=== PATIENT | male | born 1955 ===

== ENCOUNTER 2018-01-06 18:11 | Inpatient (IN) | payer OTHER ==
[2018-01-06 20:12] LABS: BASO % 0.3 % (0.0-2.0); HEMOGLOBIN 16.2 g/dL (12.0-18.0); LYMPH # 1.1 K/uL (1.0-4.3); LYMPH % 10.4 % (20.0-40.0); MEAN CELL VOLUME 88.2 fl (80.0-94.0); MEAN CORPUSCULAR HEMOGLOBIN 29.7 pg (27.0-31.0); MEAN CORPUSCULAR HGB CONC 33.6 g/dL (33.0-37.0); MEAN PLATELET VOLUME 8.4 fl (7.2-11.7); MONO # 0.8 K/uL (0.0-0.8); MONO % 7.2 % (0.0-10.0); NEUT # 8.7 K/uL (1.8-7.0); NEUT % 82.1 % (50.0-75.0); NRBC % 0.3 % (0.0-0.0); RBC 5.48 Mil/uL (4.40-5.90); RED CELL DISTRIBUTION WIDTH 15.2 % (11.5-14.5); WHITE BLOOD COUNT 10.6 K/uL (4.8-10.8)
[2018-01-06 20:23] LABS: ALB/GLOB RATIO 1.2 (1.0-2.1); ALBUMIN 4.5 g/dL (3.5-5.0); ALT/SGPT 29 U/L (21-72); AST/SGOT 31 U/L (17-59); BLOOD UREA NITROGEN 24 mg/dl (9-20); CALCIUM 9.8 mg/dL (8.4-10.2); GFR AFRICAN-AMERICAN > 60; GFR NON-AFRICAN AMERICAN > 60; LIPASE 35 U/L (23-300)
--- NOTE | 2018-01-06 20:26 | ED PDOC ---
HPI: Abdomen Time Seen by Provider: 01/06/18 19:14 Chief Complaint (Nursing): Abdominal Pain Chief Complaint (Provider): Abdominal Pain History Per: Patient History/Exam Limitations: no limitations Onset/Duration Of Symptoms: Days Current Symptoms Are (Timing): Still Present Location Of Pain/Discomfort: Diffuse Associated Symptoms: Vomiting, Loss Of Appetite. denies: Diarrhea Additional Complaint(s): 62 year old male presents to the ED complaining of diffuse and constant abdominal pain, worsening since onset Wednesday. Patient states abdominal pain is associated with non-bloody, non-bilious intermittent vomiting and decreased appetite. Patient states she has not been able to eat anything for the last three days. Patient was seen at an Urgent Care where labs and ultrasounds were performed and sent to the ER for further evaluation, thus prompting today's visit. PMD: None Past Medical History Reviewed: Historical Data, Nursing Documentation, Vital Signs Vital Signs: Last Vital Signs Temp 98.7 F 01/06/18 22:49 Pulse 68 01/06/18 22:49 Resp 18 01/06/18 22:49 BP 140/71 01/06/18 22:49 Pulse Ox 97 01/06/18 23:06 - Medical History PMH: No Chronic Diseases - Surgical History Surgical History: No Surg Hx - Family History Family History: States: No Known Family Hx - Social History Current smoker - smoking cessation education provided: No Alcohol: > 2 Drinks/Day Drugs: Denies - Allergies Allergies/Adverse Reactions: Allergies Allergy/AdvReac Type Severity Reaction Status Date / Time No Known Allergies Allergy Verified 01/06/18 18:34 Review of Systems ROS Statement: Except As Marked, All Systems Reviewed And Found Negative (as per HPI) Gastrointestinal: Positive for: Vomiting (intermittent non-bloody, non-bilious ) , Abdominal Pain (diffuse), Other (decreased appetite). Negative for: Diarrhea Physical Exam - Reviewed Nursing Documentation Reviewed: Yes Vital Signs Reviewed: Yes - Physical Exam Appears: Positive for: Uncomfortable, In Acute Distress (painful ) Head Exam: Positive for: ATRAUMATIC, NORMOCEPHALIC Skin: Positive for: Warm, Dry Eye Exam: Positive for: EOMI, PERRL ENT: Positive for: Normal ENT Inspection, Other (dry mucous membranes) Neck: Positive for: Normal, Painless ROM Cardiovascular/Chest: Positive for: Regular Rate, Rhythm, Chest Non Tender. Negative for: Murmur Respiratory: Positive for: Normal Breath Sounds. Negative for: Wheezing, Respiratory Distress Gastrointestinal/Abdominal: Positive for: Soft, Tenderness (diffuse tenderness to palpation; no mass, guarding or rebound.), Hernia (reducible, soft, right anguinal hernia ) Back: Positive for: Normal Inspection. Negative for: Decreased ROM Extremity: Positive for: Normal ROM. Negative for: Deformity Lymphatic: Negative for: Adenopathy Neurologic/Psych: Positive for: Alert. Negative for: Motor/Sensory Deficits - Laboratory Results Result Diagrams: 01/06/18 19:58 01/06/18 19:58 - ECG ECG: Positive for: Interpreted By Me ECG Rhythm: Positive for: Normal QRS, Normal ST Segment, Sinus Rhythm O2 Sat by Pulse Oximetry: 97 (RA) Pulse Ox Interpretation: Normal Medical Decision Making Medical Decision Making: Time: 1958 Impression: Abdominal Pain Differentials include but not limited to obstruction, mesenteric ischemia, colitis, diverticulitis, appendicitis Plan: -- Type and Screen -- CT Abd & Pelvis IV contrast -- CMP -- Lact Acid -- LDH -- Lipase -- Magnesium -- Phosphorus -- ED Urine Dipstick -- CBC with differentials -- PTT -- Prothrombin Time -- Morphine 2 mg IVP -- Zofran ODT 4 mg IVP -- IV Insertion No emergently significant lab abnormalities EXAM: CT Abdomen and Pelvis With Intravenous Contrast CLINICAL HISTORY: 62 years, male; Pain; Abdominal pain; Localized; Lower; Additional info: Abd pain TECHNIQUE: Axial computed tomography images of the abdomen and pelvis with intravenous contrast. All CT scans at this facility use one or more dose reduction techniques, viz.: automated exposure control; ma/kV adjustment per patient size (including targeted exams where dose is matched to indication; i.e. head); or iterative reconstruction technique. CONTRAST: 90 mL of [id number] administered intravenously. COMPARISON: No relevant prior studies available. FINDINGS: Lung bases: Unremarkable. No mass. No consolidation. ABDOMEN: Liver: Hepatic steatosis. No focal liver mass. Gallbladder and bile ducts: Unremarkable. No calcified stones. No ductal dilation. Pancreas: Unremarkable. No mass. No ductal dilation. Spleen: Unremarkable. No splenomegaly. Adrenals: Unremarkable. No mass. Kidneys and ureters: Unremarkable. No solid mass. No hydronephrosis. Stomach and bowel: Multiple dilated loops of small bowel measuring up to 4.4 cm with transition point to collapsed loops of ileum identified in the right lower quadrant. Colon is decompressed. Diverticulosis. No mucosal thickening. PELVIS: Appendix: Normal appendix. Bladder: Unremarkable. No mass. Reproductive: Enlargement of the prostate gland. Bilateral hydroceles. ABDOMEN and PELVIS: Intraperitoneal space: Small amount of free fluid in the abdomen and pelvis. No free air. Bones/joints: Multilevel degenerative changes. No acute fracture. No dislocation. Soft tissues: Small right and tiny left inguinal hernias containing fat and a small amount of free fluid tracking from the pelvis. Vasculature: Minimal atherosclerosis of the aorta and iliac arteries. No abdominal aortic aneurysm. Lymph nodes: Unremarkable. No enlarged lymph nodes. IMPRESSION: 1. Mechanical small bowel obstruction with transition point in the right lower quadrant. 2. Small amount of free fluid in the abdomen and pelvis. 3. Additional chronic/incidental findings as described above. Thank you for allowing us to participate in the care of your patient. Dictated and Authenticated by: Arina Hurley MD 01/06/2018 10:23 PM Eastern Time ([place] & [place]) 11p On reeval pt feels better, but now has hiccups. RITU Braxton resident services coordinator. RITU Hauser Med Service DW pt findings and plan of care. IVF, IV Zosyn, Bowel rest, admission Scribe Attestation: Documented by Dave Mccain, acting as a scribe for Dr. Kasey Garcia. Provider Scribe Attestation: All medical record entries made by the Scribe were at my direction and personally dictated by me. I have reviewed the chart and agree that the record accurately reflects my personal performance of the history, physical exam, medical decision making, and the department course for this patient. I have also personally directed, reviewed and agree with the discharge instructions and disposition. Disposition - Clinical Impression Clinical Impression: Small bowel obstruction Counseled Patient/Family Regarding: Studies Performed, Diagnosis - Disposition Disposition Time: 23:00 Condition: FAIR - Pt Status Changed To: Hospital Disposition Of: Inpatient - Admit Certification Admit to Inpatient:: After my assessment, the patient will require hospitalization for at least two midnights. This is because of the severity of symptoms shown, intensity of services needed, and/or the medical risk in this patient being treated as an outpatient. - POA Present On Arrival: None
[2018-01-06 20:51] LABS: INR 0.9 (0.9-1.2); PARTIAL THROMBOPLASTIN TIME 30.4 Seconds (25.6-37.1)
[2018-01-06] MEDS ORDERED: Iohexol 300 100 ML IJ ONE (21:03)
[2018-01-06] MEDS ORDERED: Sodium Chloride 0.9% 50 ML IV ONE (21:03)
[2018-01-06] MEDS ORDERED: Sodium Chloride 0.9% 1,000 ML IV STA (23:11)
[2018-01-06] MEDS ORDERED: Dextrose 5%/0.9% NS 1,000 ML IV SCH (23:15)
[2018-01-06] MEDS ORDERED: Piperacillin/Tazobact 3.375 GM in Sodium Chloride 0.9% 100 ML IV STA (23:58)
[2018-01-07] MEDS ORDERED: Piperacillin/Tazobact 3.375 gm Inj IVPB ONE (00:17)
--- NOTE | 2018-01-07 03:11 | CP.PCM.CON ---
<Vu Braxton - Last Filed: 01/08/18 12:04> History of Present Illness - History of Present Illness History of Present Illness: General Surgery Consult Note: Dr. Umana 62M with no significant past medical history presents to [facility] ED with complaints of abdominal pain. Patient states abdominal pain began on Wednesday morning. Reports abdominal discomfort kept progressing and states he was having multiple bouts of non- bloody emesis. Patient denies passing flatus or having a BM since symptoms started on Wednesday. At time of examination patient reported feeling nauseous and bloated. A nasogastric tube was inserted, 300ccs of bilious fluid were collected on initial insertion. Patient denies ever having a colonoscopy. Denies headache/dizziness, chest pain, shortness of breath, diarrhea, dysuria. PMHx: none PSurgHx: none Allergies: none Soc Hx: Drinks 6 cans of 12 oz beers daily, denies smoking, denies illicit drug use Review of Systems - Review of Systems Review of Systems: 12 pt ROS unremarkable, except as stated in HPI Past Patient History - Infectious Disease Hx of Infectious Diseases: None - Past Medical History & Family History Past Medical History?: No - Past Social History Smoking Status: Never Smoked - CARDIAC Hx Cardiac Disorders: No - PULMONARY Hx Respiratory Disorders: No - NEUROLOGICAL Hx Neurological Disorder: No - HEENT Hx HEENT Problems: No - RENAL Hx Chronic Kidney Disease: No - ENDOCRINE/METABOLIC Hx Endocrine Disorders: No - HEMATOLOGICAL/ONCOLOGICAL Hx Blood Disorders: No Hx AIDS: No Hx Human Immunodeficiency Virus (HIV): No - INTEGUMENTARY Hx Dermatological Problems: No - MUSCULOSKELETAL/RHEUMATOLOGICAL Hx Musculoskeletal Disorders: No Hx Falls: No - GASTROINTESTINAL Hx Gastrointestinal Disorders: No - GENITOURINARY/GYNECOLOGICAL Hx Genitourinary Disorders: No - PSYCHIATRIC Hx Psychophysiologic Disorder: No Hx Substance Use: No - SURGICAL HISTORY Hx Surgeries: No - ANESTHESIA Hx Anesthesia: No Meds Allergies/Adverse Reactions: Allergies Allergy/AdvReac Type Severity Reaction Status Date / Time No Known Allergies Allergy Verified 01/06/18 18:34 - Medications Medications: Current Medications Dextrose/Sodium Chloride (Dextrose 5%/0.9% Ns 1000 Ml) 1,000 mls @ 100 mls/hr IV .Q10H [facility] Last Admin: 01/07/18 00:25 Dose: 100 mls/hr Physical Exam - Constitutional Appears: Non-toxic, No Acute Distress - Head Exam Head Exam: NORMOCEPHALIC - Eye Exam Eye Exam: Normal appearance - ENT Exam ENT Exam: Mucous Membranes Moist - Respiratory Exam Respiratory Exam: NORMAL BREATHING PATTERN - Cardiovascular Exam Cardiovascular Exam: +S1, +S2 - GI/Abdominal Exam GI & Abdominal Exam: Distended, Hernia, Soft. absent: Firm, Guarding, Rebound, Rigid, Tenderness Additional comments: small right inguinal hernia, fat containing, reducible - Neurological Exam Neurological exam: Alert, Oriented x3 - Psychiatric Exam Psychiatric exam: Normal Mood - Skin Skin Exam: Dry, Normal Color, Warm Results - Vital Signs Recent Vital Signs: Last Vital Signs Temp 98.6 F 01/07/18 01:07 Pulse 73 01/07/18 01:07 Resp 18 01/07/18 01:07 BP 157/84 H 01/07/18 01:07 Pulse Ox 97 01/07/18 01:07 - Labs Result Diagrams: 01/08/18 06:30 01/08/18 06:30 Labs: Laboratory Results - last 24 hr 01/06/18 01/06/18 01/06/18 19:58 19:58 19:58 WBC 10.6 RBC 5.48 Hgb 16.2 Hct 48.3 MCV 88.2 MCH 29.7 MCHC 33.6 RDW 15.2 H Plt Count 282 MPV 8.4 Neut % (Auto) 82.1 H Lymph % (Auto) 10.4 L [place] % (Auto) 7.2 Eos % (Auto) 0.0 Baso % (Auto) 0.3 Neut # (Auto) 8.7 H Lymph # (Auto) 1.1 [place] # (Auto) 0.8 Eos # (Auto) 0.0 Baso # (Auto) 0.0 PT INR APTT Sodium 140 Potassium 4.2 Chloride 96 L Carbon Dioxide 33 H Anion Gap 15 BUN 24 H Creatinine 0.8 Est GFR ( Amer) > 60 Est GFR (Non-Af Amer) > 60 Random Glucose 116 H Lactic Acid 0.9 Calcium 9.8 Phosphorus 3.2 Magnesium 2.1 Total Bilirubin 2.8 H AST 31 ALT 29 Alkaline Phosphatase 54 Lactate Dehydrogenase 427 Total Protein 8.0 Albumin 4.5 Globulin 3.6 Albumin/Globulin Ratio 1.2 Lipase 35 Blood Type Antibody Screen BBK History Checked 01/06/18 01/06/18 19:58 19:58 WBC RBC Hgb Hct MCV MCH MCHC RDW Plt Count MPV Neut % (Auto) Lymph % (Auto) [place] % (Auto) Eos % (Auto) Baso % (Auto) Neut # (Auto) Lymph # (Auto) [place] # (Auto) Eos # (Auto) Baso # (Auto) PT 10.0 INR 0.9 APTT 30.4 Sodium Potassium Chloride Carbon Dioxide Anion Gap BUN Creatinine Est GFR ( Amer) Est GFR (Non-Af Amer) Random Glucose Lactic Acid Calcium Phosphorus Magnesium Total Bilirubin AST ALT Alkaline Phosphatase Lactate Dehydrogenase Total Protein Albumin Globulin Albumin/Globulin Ratio Lipase Blood Type O POSITIVE Antibody Screen Negative BBK History Checked No verified bt - Imaging and Cardiology CT scan - abdomen Status: Image reviewed by me, Report reviewed by me Assessment & Plan - Assessment and Plan (Free Text) Assessment: 62M with SBO likely 2/2 right inguinal hernia Plan: NPO IVF Anti-emetics prn Analgesic prn NGT to low continuous suction Recommend GI consult, warrants screening colonoscopy Further recs per Dr. Dong Fisher PGY2 <Kev Umana - Last Filed: 01/08/18 15:04> Meds - Medications Medications: Current Medications Benzocaine/Menthol (Cepacol Sore Throat) 1 margarita PO Q2 PRN PRN Reason: Sore Throat Dextrose/Sodium Chloride (Dextrose 5%/0.45% Ns 1000 Ml) 1,000 mls @ 125 mls/hr IV .Q8H [facility] Last Admin: 01/08/18 14:02 Dose: 125 mls/hr Ondansetron HCl (Zofran Inj) 4 mg IVP Q6 PRN PRN Reason: nausea Pantoprazole Sodium (Protonix Inj) 40 mg IVP DAILY [facility] Last Admin: 01/08/18 09:02 Dose: 40 mg Results - Vital Signs Recent Vital Signs: Last Vital Signs Temp 98.3 F 01/08/18 00:16 Pulse 67 01/08/18 00:16 Resp 18 01/08/18 00:16 BP 150/79 01/08/18 00:16 Pulse Ox 97 01/08/18 00:16 - Labs Result Diagrams: 01/08/18 06:30 01/08/18 06:30 Labs: Laboratory Results - last 24 hr 01/08/18 01/08/18 06:30 06:30 WBC 7.2 RBC 4.90 Hgb 14.6 Hct 43.8 MCV 89.4 MCH 29.8 MCHC 33.4 RDW 15.2 H Plt Count 244 Sodium 138 Potassium 4.6 Chloride 99 Carbon Dioxide 32 H Anion Gap 12 BUN 15 Creatinine 0.8 Est GFR ( Amer) > 60 Est GFR (Non-Af Amer) > 60 Random Glucose 132 H Calcium 8.7 Assessment & Plan - Assessment and Plan (Free Text) Plan: I personally saw and examined this patient at bedside independent of the resident staff. I agree with the above assessment with the following changes. There is a 62-year-old male with no other past surgical history presents with his first episode of small bowel obstruction. On talking with the patient he said he stated the symptoms started 3 days prior to presentation to the hospital is vague diffuse abdominal pain on Wednesday. He left early from work that day and took off of work on Wednesday due to his abdominal discomfort finally on morning the pain became unbearable. He also states that this was the first time he noticed a bulge in his right groin he denies any history of prior groin hernias. He finally brought himself to the urgent care facility and was sent to the emergency room for further evaluation. An abdomen abdominal CT was performed. I personally reviewed the CT abdomen pelvis images. I do agree with a he may have a transition point small bowel in his right lower abdomen however I to me it appears that there may be a loop of small bowel that is actually herniating into his right groin. In my exam he has a small right inguinal hernia that is soft reducible nonpainful. His abdomen is soft nondistended and nontender. This is after 24 hours of NG tube decompression he does endorse passing flatus as of this morning. I discussed with the patient that I recommend he undergo exloratory laparoscopy with plans for performing a laparoscopic robotic assisted (ROBERT) repair of his right inguinal hernia with mesh depending on intra-abdominal findings. I also discussed the option of waiting and if he is able to resolve this episode of small bowel obstruction that this could be repaired electively at a later time. 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 He would like to proceed with surgery during this admission. We discussed the details of the operation and risks and benefits including, but not limited to, bleeding, infection, injury to vascular structures, bowel and/or bladder as well as hernia recurrence, chronic groin pain and seroma formation. He understands these risks and wishes to proceed. He will need medical clearance for surgery and we have asked the medicine team to evaluate. For now, NGT clamp trial can be performed, if 6 hours residual output is <300 AND continues to pass flatus, NGT may be removed but I would still keep NPO for today. Can give clears on wednesday and make NPO at Midnight wednesday night for tentative surgery Wednesday. - Date & Time Date: 01/08/18 Time: 10:00
[2018-01-07] MEDS ORDERED: Benzocaine/Menthol (Cepacol) Lozenge PO PRN (03:21)
[2018-01-07] MEDS ORDERED: Potassium Ch 20mEq in D5-1/2NS 1,000 ML IV SCH (03:30)
[2018-01-07 06:52] LABS: BASO % 0.1 % (0.0-2.0); EOS % 0.1 % (0.0-4.0); HEMOGLOBIN 15.2 g/dL (12.0-18.0); LYMPH # 1.4 K/uL (1.0-4.3); LYMPH % 12.7 % (20.0-40.0); MEAN CELL VOLUME 88.5 fl (80.0-94.0); MEAN CORPUSCULAR HEMOGLOBIN 29.7 pg (27.0-31.0); MEAN CORPUSCULAR HGB CONC 33.6 g/dL (33.0-37.0); MEAN PLATELET VOLUME 8.5 fl (7.2-11.7); MONO # 0.8 K/uL (0.0-0.8); MONO % 7.6 % (0.0-10.0); NEUT # 8.5 K/uL (1.8-7.0); NEUT % 79.5 % (50.0-75.0); NRBC % 0.1 % (0.0-0.0); RBC 5.12 Mil/uL (4.40-5.90); RED CELL DISTRIBUTION WIDTH 15.4 % (11.5-14.5); WHITE BLOOD COUNT 10.7 K/uL (4.8-10.8)
[2018-01-07 07:02] LABS: BLOOD UREA NITROGEN 23 mg/dl (9-20); CALCIUM 9.1 mg/dL (8.4-10.2); GFR AFRICAN-AMERICAN > 60; GFR NON-AFRICAN AMERICAN > 60
--- NOTE | 2018-01-07 07:12 | RAD ---
HISTORY: NGT insertion COMPARISON: Chest radiographs 01/06/2018. FINDINGS: A nasogastric tube is identified placed in the interval terminating at the left upper quadrant abdomen. LUNGS: No active pulmonary disease. PLEURA: No significant pleural effusion identified, no pneumothorax apparent. CARDIOVASCULAR: Normal. OSSEOUS STRUCTURES: No significant abnormalities. VISUALIZED UPPER ABDOMEN: Distended small bowel loops identified in the upper abdomen diffusely. OTHER FINDINGS: None. IMPRESSION: No acute cardiopulmonary disease appreciated. Interval nasogastric tube deployment as discussed above.
--- NOTE | 2018-01-07 09:21 | CT ---
PROCEDURE: CT Abdomen and Pelvis with contrast HISTORY: ABD PAIN COMPARISON: None. TECHNIQUE: Following the intravenous administration of iodinated contrast material, a CT examination of the abdomen and pelvis performed from the domes of the diaphragms to the symphysis pubis with reformatted datasets provided not only axial but also sagittal and coronal planes. Oral contrast was not administered as per referring physician request. Contrast dose: Omnipaque 300, 90 cc Radiation dose: Total exam DLP = 205.22 mGy-cm. This CT exam was performed using one or more of the following dose reduction techniques: Automated exposure control, adjustment of the mA and/or kV according to patient size, and/or use of iterative reconstruction technique. FINDINGS: LOWER THORAX: Unremarkable. LIVER: Unremarkable. No gross lesion or ductal dilatation. GALLBLADDER AND BILE DUCTS: Unremarkable. PANCREAS: Unremarkable. No gross lesion or ductal dilatation. SPLEEN: Unremarkable. ADRENALS: Unremarkable. No mass. KIDNEYS AND URETERS: Unremarkable. No hydronephrosis. No solid mass. VASCULATURE: Unremarkable. No aortic aneurysm. BOWEL: Stomach is moderately distended with retained fluid and air and is unremarkable appearing otherwise. A mechanical distal small bowel obstruction is identified with loops of small bowel distended with air and fluid up to approximately 4.5 cm greatest transverse dimension. Pattern persists up to the distal small bowel at the right lower quadrant were transition from dilated to collapsed caliber is appreciated at images 119-124 series 3 and image 31 series 601. Trace perihepatic and pelvic ascites is identified with limited mesenteric reactive changes identified at the right lower quadrant in the pelvis. No free intraperitoneal gas. No pneumatosis of bowel is identified throughout. APPENDIX: Normal appendix. PERITONEUM: Unremarkable. No free fluid. No free air. LYMPH NODES: Unremarkable. No enlarged lymph nodes. BLADDER: Unremarkable. REPRODUCTIVE: Enlarged prostate gland. BONES: No acute fracture. OTHER FINDINGS: None. IMPRESSION: 1. Findings consistent with mechanical distal small bowel obstruction with transition point identified in the right lower quadrant abdomen. Limited abdominal and pelvic ascites as discussed above. Small bowel is distended up to 4.5 cm greatest transverse dimension. No free intraperitoneal gas identified. 2. Remainder the abdominal portion of the exam is unremarkable. 3. Enlarged prostate gland. Concordant preliminary report from [facility], 01/06/2018.
[2018-01-07] MEDS: Dextrose 5%/0.45% NS 1,000 ML IV SCH ×3 (10:50→21:54)
--- NOTE | 2018-01-07 11:09 | CARD ---
APPROVED REPORT EKG Measurement Heart [id number] ID [id number] <Conclusion> Normal sinus rhythm Normal ECG
--- NOTE | 2018-01-07 11:27 | RAD ---
HISTORY: bowel obstruction COMPARISON: Chest radiograph 01/06/2018. FINDINGS: LUNGS: No active pulmonary disease. PLEURA: No significant pleural effusion identified, no pneumothorax apparent. CARDIOVASCULAR: Normal. OSSEOUS STRUCTURES: No significant abnormalities. VISUALIZED UPPER ABDOMEN: Persistent dilated loops of small bowel are identified in the visualized abdomen with the stomach mildly distended as well. OTHER FINDINGS: None. IMPRESSION: No acute cardiopulmonary disease in the interval. Incidental distention of small bowel loops and stomach are again seen in the visualized abdomen.
--- NOTE | 2018-01-07 14:16 | CP.PCM.HP ---
History of Present Illness - History of Present Illness History of Present Illness: CC: Abdominal pain. 62 y/o M, with no chronic PMHx, [facility] be evaluated for abdominal pain that began on 01/05/18, with no relief, increased on DOA. Generalized abdominal pain, described as sharp, cramping, moderated intensity 7:10, associated to nausea/vomiting, non bilious, non bloody. Previously, Pt was seen at an Urgent Care center where Labs and abdomen U-S were performed and was sent to ER [facility] for further Tx. Worsening symptoms: Loss of Appetite. CT Abd/Pel performed while at ER showing SBO. Aggravated factor: Unable to eat for the last 3 days [employer]. Pt denied: Fever, chills, diarrhea, SOB, CP, Palpitation, headache, dizziness, urinary symptoms, sick contact, recent travel out of [facility]. CXR: No Cardiopulmonary disease. EKG: Normal sinus rhythm. Present on Admission - Present on Admission Any Indicators Present on Admission: No Review of Systems - Constitutional Constitutional: Other (negative) - EENT Eyes: Requires Corrective Lenses Ears: Other (negative) Nose/Mouth/Throat: Other (negative) - Cardiovascular Cardiovascular: Other (negative) - Respiratory Respiratory: Other (negative) - Gastrointestinal Gastrointestinal: Abdominal Pain, Nausea, Vomiting - Genitourinary Genitourinary: Other (negative) - Musculoskeletal Musculoskeletal: Other (negative) - Integumentary Integumentary: Other (negative) - Neurological Neurological: Other (negative) - Psychiatric Psychiatric: Other (negative) - Endocrine Endocrine: Other (negative) - Hematologic/Lymphatic Hematologic: Other (negative) Past Patient History - Infectious Disease Hx of Infectious Diseases: None - Past Medical History & Family History Past Medical History?: No Pertinent Family History: Unknown - Past Social History Smoking Status: Never Smoked Alcohol: > 2 Drinks/Day Drugs: Denies - CARDIAC Hx Cardiac Disorders: No - PULMONARY Hx Respiratory Disorders: No - NEUROLOGICAL Hx Neurological Disorder: No - HEENT Hx HEENT Problems: No - RENAL Hx Chronic Kidney Disease: No - ENDOCRINE/METABOLIC Hx Endocrine Disorders: No - HEMATOLOGICAL/ONCOLOGICAL Hx Blood Disorders: No Hx AIDS: No Hx Human Immunodeficiency Virus (HIV): No - INTEGUMENTARY Hx Dermatological Problems: No - MUSCULOSKELETAL/RHEUMATOLOGICAL Hx Musculoskeletal Disorders: No Hx Falls: No - GASTROINTESTINAL Hx Gastrointestinal Disorders: No - GENITOURINARY/GYNECOLOGICAL Hx Genitourinary Disorders: No - PSYCHIATRIC Hx Psychophysiologic Disorder: No Hx Substance Use: No - SURGICAL HISTORY Hx Surgeries: No - ANESTHESIA Hx Anesthesia: No Meds Allergies/Adverse Reactions: Allergies Allergy/AdvReac Type Severity Reaction Status Date / Time No Known Allergies Allergy Verified 01/06/18 18:34 Physical Exam - Constitutional Appears: No Acute Distress - Head Exam Head Exam: NORMAL INSPECTION - Eye Exam Eye Exam: PERRL - ENT Exam Additional comments: NG tube - Neck Exam Neck exam: Positive for: Normal Inspection - Respiratory Exam Respiratory Exam: NORMAL BREATHING PATTERN - Cardiovascular Exam Cardiovascular Exam: REGULAR RHYTHM - GI/Abdominal Exam GI & Abdominal Exam: Distended (mild), Normal Bowel Sounds, Soft. absent: Guarding, Rebound Additional comments: R inguinal hernia reducible. - Extremities Exam Extremities exam: Positive for: normal inspection - Back Exam Back exam: NORMAL INSPECTION - Neurological Exam Neurological exam: Alert, Oriented x3 Additional comments: No motor/sensory deficit. - Psychiatric Exam Psychiatric exam: Normal Mood - Skin Skin Exam: Warm Results - Vital Signs Recent Vital Signs: Last Vital Signs Temp 98.2 F 01/07/18 08:08 Pulse 54 L 01/07/18 08:08 Resp 98 H 01/07/18 08:08 BP 137/76 01/07/18 08:08 Pulse Ox 20 L 01/07/18 08:08 reviewed Keerthi - Labs Result Diagrams: 01/08/18 06:30 01/08/18 06:30 Labs: Laboratory Results - last 24 hr 01/06/18 01/06/18 01/06/18 19:58 19:58 19:58 WBC 10.6 RBC 5.48 Hgb 16.2 Hct 48.3 MCV 88.2 MCH 29.7 MCHC 33.6 RDW 15.2 H Plt Count 282 MPV 8.4 Neut % (Auto) 82.1 H Lymph % (Auto) 10.4 L [place] % (Auto) 7.2 Eos % (Auto) 0.0 Baso % (Auto) 0.3 Neut # (Auto) 8.7 H Lymph # (Auto) 1.1 [place] # (Auto) 0.8 Eos # (Auto) 0.0 Baso # (Auto) 0.0 PT INR APTT Sodium 140 Potassium 4.2 Chloride 96 L Carbon Dioxide 33 H Anion Gap 15 BUN 24 H Creatinine 0.8 Est GFR ( Amer) > 60 Est GFR (Non-Af Amer) > 60 Random Glucose 116 H Lactic Acid 0.9 Calcium 9.8 Phosphorus 3.2 Magnesium 2.1 Total Bilirubin 2.8 H AST 31 ALT 29 Alkaline Phosphatase 54 Lactate Dehydrogenase 427 Total Protein 8.0 Albumin 4.5 Globulin 3.6 Albumin/Globulin Ratio 1.2 Lipase 35 Blood Type Antibody Screen BBK History Checked 01/06/18 01/06/18 01/07/18 19:58 19:58 05:35 WBC 10.7 RBC 5.12 Hgb 15.2 Hct 45.3 MCV 88.5 MCH 29.7 MCHC 33.6 RDW 15.4 H Plt Count 268 MPV 8.5 Neut % (Auto) 79.5 H Lymph % (Auto) 12.7 L [place] % (Auto) 7.6 Eos % (Auto) 0.1 Baso % (Auto) 0.1 Neut # (Auto) 8.5 H Lymph # (Auto) 1.4 [place] # (Auto) 0.8 Eos # (Auto) 0.0 Baso # (Auto) 0.0 PT 10.0 INR 0.9 APTT 30.4 Sodium Potassium Chloride Carbon Dioxide Anion Gap BUN Creatinine Est GFR ( Amer) Est GFR (Non-Af Amer) Random Glucose Lactic Acid Calcium Phosphorus Magnesium Total Bilirubin AST ALT Alkaline Phosphatase Lactate Dehydrogenase Total Protein Albumin Globulin Albumin/Globulin Ratio Lipase Blood Type O POSITIVE Antibody Screen Negative BBK History Checked No verified bt 01/07/18 05:35 WBC RBC Hgb Hct MCV MCH MCHC RDW Plt Count MPV Neut % (Auto) Lymph % (Auto) [place] % (Auto) Eos % (Auto) Baso % (Auto) Neut # (Auto) Lymph # (Auto) [place] # (Auto) Eos # (Auto) Baso # (Auto) PT INR APTT Sodium 140 Potassium 5.2 H Chloride 101 Carbon Dioxide 31 H Anion Gap 13 BUN 23 H Creatinine 0.9 Est GFR ( Amer) > 60 Est GFR (Non-Af Amer) > 60 Random Glucose 154 H Lactic Acid Calcium 9.1 Phosphorus Magnesium Total Bilirubin AST ALT Alkaline Phosphatase Lactate Dehydrogenase Total Protein Albumin Globulin Albumin/Globulin Ratio Lipase Blood Type Antibody Screen BBK History Checked reviewed J.P. - EKG Data EKG comments: reviewed J.PJosey - Imaging and Cardiology Chest x-ray Status: Report reviewed by me (Keerthi) Assessment & Plan (1) Small bowel obstruction Status: Acute (2) Inguinal hernia Status: Chronic - Assessment and Plan (Free Text) Plan: Continue NPO, Dextrose/Sodium Chl, Protonic, Surgery consult appreciated, GI consult. - Date & Time Date: 01/07/18 Time: 13:40
[2018-01-08] MEDS: Dextrose 5%/0.45% NS 1,000 ML IV SCH ×5 (02:30→22:02)
[2018-01-08 07:42] LABS: HEMOGLOBIN 14.6 g/dL (12.0-18.0); MEAN CELL VOLUME 89.4 fl (80.0-94.0); MEAN CORPUSCULAR HEMOGLOBIN 29.8 pg (27.0-31.0); MEAN CORPUSCULAR HGB CONC 33.4 g/dL (33.0-37.0); RBC 4.9 Mil/uL (4.40-5.90); RED CELL DISTRIBUTION WIDTH 15.2 % (11.5-14.5); WHITE BLOOD COUNT 7.2 K/uL (4.8-10.8)
[2018-01-08 07:56] LABS: BLOOD UREA NITROGEN 15 mg/dl (9-20); CALCIUM 8.7 mg/dL (8.4-10.2); GFR AFRICAN-AMERICAN > 60; GFR NON-AFRICAN AMERICAN > 60
--- NOTE | 2018-01-08 09:41 | CP.PCM.PN ---
Subjective - Date & Time of Evaluation Date of Evaluation: 01/08/18 Time of Evaluation: 07:00 - Subjective Subjective: Surgery Progress note- Dr. Umana Patient seen and examined at bedside this AM. no acute events overnight. Nursing notes reviewed. ABD less distended. ABD pain and discomfort significantly improved from yesterday. + OOB and ambulate. Denies current BM and flatus. NGT 300cc/12hrs of bilious fluid Objective - Vital Signs/Intake and Output Vital Signs (last 24 hours): Temp Pulse Resp BP Pulse Ox 98.3 F 67 18 150/79 97 01/08/18 00:16 01/08/18 00:16 01/08/18 00:16 01/08/18 00:16 01/08/18 00:16 Intake and Output: 01/08/18 01/08/18 06:59 18:59 Output Total 400 Balance -400 - Medications Medications: Current Medications Benzocaine/Menthol (Cepacol Sore Throat) 1 margarita PO Q2 PRN PRN Reason: Sore Throat Dextrose/Sodium Chloride (Dextrose 5%/0.45% Ns 1000 Ml) 1,000 mls @ 125 mls/hr IV .[facility]H [facility] Last Admin: 01/08/18 05:34 Dose: 125 mls/hr Ondansetron HCl (Zofran Inj) 4 mg IVP Q6 PRN PRN Reason: nausea Pantoprazole Sodium (Protonix Inj) 40 mg IVP DAILY [facility] Last Admin: 01/08/18 09:02 Dose: 40 mg - Labs Labs: 01/08/18 06:30 01/08/18 06:30 PT 10.0 Seconds (9.8-13.1) 01/06/18 19:58 INR 0.9 (0.9-1.2) 01/06/18 19:58 APTT 30.4 Seconds (25.6-37.1) 01/06/18 19:58 - Constitutional Appears: Non-toxic, No Acute Distress - Head Exam Head Exam: ATRAUMATIC - Eye Exam Eye Exam: EOMI. absent: Scleral icterus - Respiratory Exam Respiratory Exam: NORMAL BREATHING PATTERN. absent: Accessory Muscle Use, Respiratory Distress - Cardiovascular Exam Cardiovascular Exam: +S1, +S2. absent: Bradycardia, Tachycardia - GI/Abdominal Exam GI & Abdominal Exam: Soft. absent: Distended, Firm, Guarding, Rigid, Tenderness , Rebound - Extremities Exam Extremities Exam: Normal Inspection. absent: Calf Tenderness - Neurological Exam Neurological Exam: Alert, Awake, Oriented x3 - Psychiatric Exam Psychiatric exam: Normal Affect - Skin Skin Exam: Intact, Warm Assessment and Plan - Assessment and Plan (Free Text) Assessment: 62M w/ SBO, improving Plan: - dulcolax suppository - c/w IVF D51/2NS - NPO - pain control PRN - Lab holiday - Monitor bowel function return - discussed w/ Dr. Umana Surgical attending PGY1
--- NOTE | 2018-01-08 15:30 | CP.PCM.PN ---
Subjective - Date & Time of Evaluation Date of Evaluation: 01/08/18 Time of Evaluation: 14:00 - Subjective Subjective: F/U SBO no Abdominal pain , no N/V , NG tube Objective - Vital Signs/Intake and Output Vital Signs (last 24 hours): Temp Pulse Resp BP Pulse Ox 98.3 F 67 18 150/79 97 01/08/18 00:16 01/08/18 00:16 01/08/18 00:16 01/08/18 00:16 01/08/18 00:16 Intake and Output: 01/08/18 01/08/18 06:59 18:59 Output Total 400 Balance -400 - Medications Medications: Current Medications Benzocaine/Menthol (Cepacol Sore Throat) 1 margarita PO Q2 PRN PRN Reason: Sore Throat Dextrose/Sodium Chloride (Dextrose 5%/0.45% Ns 1000 Ml) 1,000 mls @ 125 mls/hr IV .Q8H [facility] Last Admin: 01/08/18 14:02 Dose: 125 mls/hr Ondansetron HCl (Zofran Inj) 4 mg IVP Q6 PRN PRN Reason: nausea Pantoprazole Sodium (Protonix Inj) 40 mg IVP DAILY [facility] Last Admin: 01/08/18 09:02 Dose: 40 mg - Labs Labs: 01/08/18 06:30 01/08/18 06:30 PT 10.0 Seconds (9.8-13.1) 01/06/18 19:58 INR 0.9 (0.9-1.2) 01/06/18 19:58 APTT 30.4 Seconds (25.6-37.1) 01/06/18 19:58 - Constitutional Appears: No Acute Distress - Head Exam Head Exam: NORMAL INSPECTION - Eye Exam Eye Exam: PERRL - ENT Exam ENT Exam: Normal Exam - Neck Exam Neck Exam: Normal Inspection - Respiratory Exam Respiratory Exam: NORMAL BREATHING PATTERN - Cardiovascular Exam Cardiovascular Exam: REGULAR RHYTHM - GI/Abdominal Exam GI & Abdominal Exam: Soft, Hernia, Normal Bowel Sounds Additional comments: R inguinal hernia reducible - Extremities Exam Extremities Exam: Normal Inspection - Back Exam Back Exam: NORMAL INSPECTION - Neurological Exam Neurological Exam: Alert, Oriented x3. absent: Motor Sensory Deficit - Psychiatric Exam Psychiatric exam: Normal Mood - Skin Skin Exam: Warm Assessment and Plan (1) Small bowel obstruction Status: Acute (2) Inguinal hernia Status: Chronic - Assessment and Plan (Free Text) Plan: continue current treatment , OR Wednesday
[2018-01-09] MEDS: Dextrose 5%/0.45% NS 1,000 ML IV SCH ×2 (02:30→05:50)
--- NOTE | 2018-01-09 08:57 | CP.PCM.PN ---
Subjective - Date & Time of Evaluation Date of Evaluation: 01/09/18 Time of Evaluation: 07:30 - Subjective Subjective: Surgery- Dr. Umana Patient seen and examined at bedside this AM. No acute events overnight. +oob and ambulating. Denies Flatus or BM. NGT clamp trail 1 50cc. currently NGT clamped. Denies nausea, vomiting, diarrhea, chest pain, shortness of breath. Objective - Vital Signs/Intake and Output Vital Signs (last 24 hours): Temp Pulse Resp BP Pulse Ox 98.6 F 64 20 150/80 97 01/09/18 08:38 01/09/18 08:38 01/09/18 08:38 01/09/18 08:38 01/09/18 08:38 Intake and Output: 01/09/18 01/09/18 06:59 18:59 Output Total 150 Balance -150 - Medications Medications: Current Medications Benzocaine/Menthol (Cepacol Sore Throat) 1 margarita PO Q2 PRN PRN Reason: Sore Throat Dextrose/Sodium Chloride (Dextrose 5%/0.45% Ns 1000 Ml) 1,000 mls @ 125 mls/hr IV .Q8H [facility] Last Admin: 01/09/18 05:50 Dose: 125 mls/hr Ondansetron HCl (Zofran Inj) 4 mg IVP Q6 PRN PRN Reason: nausea Pantoprazole Sodium (Protonix Inj) 40 mg IVP DAILY [facility] Last Admin: 01/08/18 09:02 Dose: 40 mg - Labs Labs: 01/08/18 06:30 01/08/18 06:30 PT 10.0 Seconds (9.8-13.1) 01/06/18 19:58 INR 0.9 (0.9-1.2) 01/06/18 19:58 APTT 30.4 Seconds (25.6-37.1) 01/06/18 19:58 - Constitutional Appears: Non-toxic, No Acute Distress - Head Exam Head Exam: ATRAUMATIC - Eye Exam Eye Exam: EOMI. absent: Scleral icterus - Neck Exam Neck Exam: absent: Lymphadenopathy - Respiratory Exam Respiratory Exam: NORMAL BREATHING PATTERN. absent: Accessory Muscle Use, Wheezes, Respiratory Distress - Cardiovascular Exam Cardiovascular Exam: +S1, +S2. absent: Bradycardia, Tachycardia - GI/Abdominal Exam GI & Abdominal Exam: Soft. absent: Distended, Firm, Guarding, Rigid, Tenderness Additional comments: +tympanic Reducible R. inguinal hernia - Extremities Exam Extremities Exam: Normal Inspection. absent: Calf Tenderness - Neurological Exam Neurological Exam: Alert, Awake, Oriented x3 - Psychiatric Exam Psychiatric exam: Normal Affect - Skin Skin Exam: Intact, Warm Assessment and Plan - Assessment and Plan (Free Text) Assessment: 62M w/ Small Bowel Obstruction Plan: - Initial NGT clamp trial 50cc - f/u repeat clamp output - plan for Will Exploratory diagnostic robotic laparoscopy and robotic laparoscopic inguinal hernia repair - medical optimization - pending medical clearance from primary team - monitor for bowel function return - d/w Dr. Umana surgical attending PGY1
--- NOTE | 2018-01-09 13:16 | CP.PCM.PN ---
Subjective - Date & Time of Evaluation Date of Evaluation: 01/09/18 Time of Evaluation: 13:30 - Subjective Subjective: no AD , no abdominal Pain , no N/V , off NG tube Objective - Vital Signs/Intake and Output Vital Signs (last 24 hours): Temp Pulse Resp BP Pulse Ox 98.6 F 64 20 150/80 97 01/09/18 08:38 01/09/18 08:38 01/09/18 08:38 01/09/18 08:38 01/09/18 08:38 Intake and Output: 01/09/18 01/09/18 06:59 18:59 Output Total 150 Balance -150 - Medications Medications: Current Medications Benzocaine/Menthol (Cepacol Sore Throat) 1 margarita PO Q2 PRN PRN Reason: Sore Throat Dextrose/Sodium Chloride (Dextrose 5%/0.45% Ns 1000 Ml) 1,000 mls @ 125 mls/hr IV .Q8H [facility] Last Admin: 01/09/18 05:50 Dose: 125 mls/hr Ondansetron HCl (Zofran Inj) 4 mg IVP Q6 PRN PRN Reason: nausea Pantoprazole Sodium (Protonix Inj) 40 mg IVP DAILY [facility] Last Admin: 01/09/18 10:05 Dose: 40 mg - Labs Labs: 01/08/18 06:30 01/08/18 06:30 PT 10.0 Seconds (9.8-13.1) 01/06/18 19:58 INR 0.9 (0.9-1.2) 01/06/18 19:58 APTT 30.4 Seconds (25.6-37.1) 01/06/18 19:58 - Constitutional Appears: No Acute Distress - Head Exam Head Exam: NORMAL INSPECTION - Eye Exam Eye Exam: PERRL - ENT Exam ENT Exam: Normal Exam - Neck Exam Neck Exam: Normal Inspection - Respiratory Exam Respiratory Exam: Clear to Ausculation Bilateral - Cardiovascular Exam Cardiovascular Exam: REGULAR RHYTHM - GI/Abdominal Exam GI & Abdominal Exam: Soft, Normal Bowel Sounds Additional comments: R inguinal hernia reducible - Extremities Exam Extremities Exam: Normal Inspection - Back Exam Back Exam: NORMAL INSPECTION - Neurological Exam Neurological Exam: Alert, CN II-XII Intact, Oriented x3. absent: Motor Sensory Deficit - Psychiatric Exam Psychiatric exam: Normal Affect, Normal Mood - Skin Skin Exam: Warm Assessment and Plan (1) Small bowel obstruction Status: Acute (2) Inguinal hernia Status: Chronic - Assessment and Plan (Free Text) Plan: Patient is off NG tube , blood test , CXR , EKG reviewed , Patient is medically cleared for surgery , for diagnostic robotic laparotomy and laparoscopic inguinal hernia repair.
[2018-01-09] MEDS ORDERED: Chlorhexidine Gluconate 1 APPL/PKT TP ONE (13:54)
[2018-01-10] MEDS: Dextrose 5%/0.45% NS 1,000 ML IV SCH ×4 (01:50→23:13)
[2018-01-10 06:20] LABS: BASO % 0.2 % (0.0-2.0); EOS % 0.5 % (0.0-4.0); HEMOGLOBIN 14.4 g/dL (12.0-18.0); LYMPH # 1.4 K/uL (1.0-4.3); MEAN CELL VOLUME 88.3 fl (80.0-94.0); MEAN CORPUSCULAR HEMOGLOBIN 30.2 pg (27.0-31.0); MEAN CORPUSCULAR HGB CONC 34.2 g/dL (33.0-37.0); MEAN PLATELET VOLUME 8.6 fl (7.2-11.7); MONO # 0.8 K/uL (0.0-0.8); MONO % 9.8 % (0.0-10.0); NEUT # 5.5 K/uL (1.8-7.0); NEUT % 71.5 % (50.0-75.0); NRBC % 0.1 % (0.0-0.0); RBC 4.78 Mil/uL (4.40-5.90); RED CELL DISTRIBUTION WIDTH 14.6 % (11.5-14.5); WHITE BLOOD COUNT 7.7 K/uL (4.8-10.8)
[2018-01-10 06:37] LABS: ALB/GLOB RATIO 1.2 (1.0-2.1); ALBUMIN 3.2 g/dL (3.5-5.0); ALT/SGPT 28 U/L (21-72); AST/SGOT 22 U/L (17-59); BLOOD UREA NITROGEN 10 mg/dl (9-20); CALCIUM 8.8 mg/dL (8.4-10.2); GFR AFRICAN-AMERICAN > 60; GFR NON-AFRICAN AMERICAN > 60
--- NOTE | 2018-01-10 07:44 | CON ---
DATE: 01/07/2018 REFERRING DOCTOR: . REASON FOR CONSULTATION: Abdominal pain, nausea, and vomiting. HISTORY OF PRESENT ILLNESS: This is a very eldon 62-year-old man who comes in with abdominal pain and discomfort, had some nausea and vomiting for past 24 to 48 hours. had no flare at this point. No pain. No nausea. Includes daily alcohol. Currently lying in bed comfortable, in no apparent distress. PAST MEDICAL HISTORY: As above. FAMILY HISTORY: As above. SOCIAL HISTORY: As above. REVIEW OF SYSTEMS: All other systems have been reviewed and negative apart from the HPI. PHYSICAL EXAMINATION VITAL SIGNS: Here in hospital, grossly unremarkable. GENERAL: A pleasant elderly male, lying in bed comfortably and in no apparent distress. HEENT: Head is normocephalic atraumatic. Eyes, pupils are equal, round and reactive to light bilaterally. No conjunctival pallor or icterus. NECK: Supple. Normal range of motion. No lymphadenopathy appreciated. LUNGS: Coarse breath sounds bilaterally. HEART: S1 and S2, regular rate and rhythm. No murmurs appreciated. ABDOMEN: Soft, nondistended. Bowel sounds present. No rebound. No guarding. RECTAL: Deferred. EXTREMITIES: Pulses present bilaterally. SKIN: Warm, dry, and intact. NEUROLOGIC: A and O x3. LABORATORY DATA: Labs and radiology have been reviewed. CAT scan shows a mechanical small bowel obstruction with in the right lower quadrant. Labs, WBC 10.7, hemoglobin 15.2, platelet count is normal. Potassium 5.2. Total bilirubin . ASSESSMENT AND PLAN: This is an 62-year-old male with small bowel obstruction, NG tube for now, ____ n.p.o., pain control. Thank you for the consult. Chinmay West MD/ PhD cc:
--- NOTE | 2018-01-10 10:00 | CP.PCM.PN ---
Subjective - Date & Time of Evaluation Date of Evaluation: 01/10/18 Time of Evaluation: 09:00 - Subjective Subjective: Distension resolved. Passing flatus yesterday and NGt removed. Tolerated clears. AVSS Abd soft, nontender non-distended. Patient has resolved his acute bowel obstruction. Case cancelled from add-on list at [facility] for today as no urgent need. We have added him to my elective schedule at [facility] tomorrow at 1130am for exploratory laparoscopy will planned laparoscopic robotic assisted right inguinal hernia repair with mesh. Patient can be given clears and discharged home today. He has been given instructions on where to go tomorrow at [facility] same day surgery. PAT will call him with further instructions later today as well. Plan of care discussed with patient who is in agreement and Dr. Hauser's team updated as well. Objective - Vital Signs/Intake and Output Vital Signs (last 24 hours): Temp Pulse Resp BP Pulse Ox 98.1 F 61 18 136/73 97 01/10/18 08:01 01/10/18 08:01 01/10/18 08:01 01/10/18 08:01 01/10/18 08:01 Intake and Output: 01/10/18 01/10/18 06:59 18:59 Intake Total 1500 Balance 1500 - Medications Medications: Current Medications Benzocaine/Menthol (Cepacol Sore Throat) 1 margarita PO Q2 PRN PRN Reason: Sore Throat Dextrose/Sodium Chloride (Dextrose 5%/0.45% Ns 1000 Ml) 1,000 mls @ 125 mls/hr IV .Q8H [facility] Last Admin: 01/10/18 09:45 Dose: 125 mls/hr Ondansetron HCl (Zofran Inj) 4 mg IVP Q6 PRN PRN Reason: nausea Pantoprazole Sodium (Protonix Inj) 40 mg IVP DAILY [facility] Last Admin: 01/10/18 08:53 Dose: 40 mg - Labs Labs: 01/10/18 05:25 01/10/18 05:25 PT 10.0 Seconds (9.8-13.1) 01/06/18 19:58 INR 0.9 (0.9-1.2) 01/06/18 19:58 APTT 30.4 Seconds (25.6-37.1) 01/06/18 19:58
[2018-01-10] MEDS ORDERED: Propofol 10 mg/ml Inj (20 ML) ONE (13:41)
[2018-01-10] MEDS ORDERED: Neostigmine 1:1000 (1 mg/ml) Inj ONE ×2 (13:42→16:57)
[2018-01-10] MEDS ORDERED: Succinylcholine 200 mg/10 ml Inj IV ONE (13:42)
[2018-01-10] MEDS ORDERED: Lidocaine 4% (Laryng-O-Jet) Kit MM ONE (13:42)
[2018-01-10] MEDS ORDERED: Rocuronium 10 mg/ml (5 ml) ONE ×2 (13:42→16:00)
--- NOTE | 2018-01-10 14:29 | CP.PCM.DIS ---
Provider - Provider Date of Admission: 01/06/18 23:29 Attending physician: Duane Hauser MD Diagnosis - Discharge Diagnosis (1) Small bowel obstruction Status: Acute (2) Inguinal hernia Status: Chronic Hospital Course - Lab Results Lab Results: Most Recent Lab Values WBC 7.7 K/uL (4.8-10.8) 01/10/18 05:25 RBC 4.78 Mil/uL (4.40-5.90) 01/10/18 05:25 Hgb 14.4 g/dL (12.0-18.0) 01/10/18 05:25 Hct 42.2 % (35.0-51.0) 01/10/18 05:25 MCV 88.3 fl (80.0-94.0) 01/10/18 05:25 MCH 30.2 pg (27.0-31.0) 01/10/18 05:25 MCHC 34.2 g/dL (33.0-37.0) 01/10/18 05:25 RDW 14.6 % (11.5-14.5) H 01/10/18 05:25 Plt Count 241 K/uL (130-400) 01/10/18 05:25 MPV 8.6 fl (7.2-11.7) 01/10/18 05:25 Neut % (Auto) 71.5 % (50.0-75.0) 01/10/18 05:25 Lymph % (Auto) 18.0 % (20.0-40.0) L 01/10/18 05:25 [place]s % (Auto) 9.8 % (0.0-10.0) 01/10/18 05:25 Eos % (Auto) 0.5 % (0.0-4.0) 01/10/18 05:25 Baso % (Auto) 0.2 % (0.0-2.0) 01/10/18 05:25 Neut # (Auto) 5.5 K/uL (1.8-7.0) 01/10/18 05:25 Lymph # (Auto) 1.4 K/uL (1.0-4.3) 01/10/18 05:25 [place]s # (Auto) 0.8 K/uL (0.0-0.8) 01/10/18 05:25 Eos # (Auto) 0.0 K/uL (0.0-0.7) 01/10/18 05:25 Baso # (Auto) 0.0 K/uL (0.0-0.2) 01/10/18 05:25 PT 10.0 Seconds (9.8-13.1) 01/06/18 19:58 INR 0.9 (0.9-1.2) 01/06/18 19:58 APTT 30.4 Seconds (25.6-37.1) 01/06/18 19:58 Sodium 139 mmol/l (132-148) 01/10/18 05:25 Potassium 4.2 MMOL/L (3.6-5.0) 01/10/18 05:25 Chloride 99 mmol/L (98-107) 01/10/18 05:25 Carbon Dioxide 31 mmol/L (22-30) H 01/10/18 05:25 Anion Gap 13 (10-20) 01/10/18 05:25 BUN 10 mg/dl (9-20) 01/10/18 05:25 Creatinine 0.8 mg/dl (0.8-1.5) 01/10/18 05:25 Est GFR ( Amer) > 60 01/10/18 05:25 Est GFR (Non-Af Amer) > 60 01/10/18 05:25 Random Glucose 140 mg/dL (75-110) H 01/10/18 05:25 Lactic Acid 0.9 MMOL/L (0.7-2.1) 01/06/18 19:58 Calcium 8.8 mg/dL (8.4-10.2) 01/10/18 05:25 Phosphorus 3.2 mg/dl (2.5-4.5) 01/06/18 19:58 Magnesium 2.1 MG/DL (1.6-2.3) 01/06/18 19:58 Total Bilirubin 1.4 mg/dl (0.2-1.3) H 01/10/18 05:25 AST 22 U/L (17-59) 01/10/18 05:25 ALT 28 U/L (21-72) 01/10/18 05:25 Alkaline Phosphatase 40 U/L (38-126) 01/10/18 05:25 Lactate Dehydrogenase 427 U/L (313-618) 01/06/18 19:58 Total Protein 5.9 G/DL (6.3-8.2) L 01/10/18 05:25 Albumin 3.2 g/dL (3.5-5.0) L D 01/10/18 05:25 Globulin 2.7 gm/dL (2.2-3.9) 01/10/18 05:25 Albumin/Globulin Ratio 1.2 (1.0-2.1) 01/10/18 05:25 Lipase 35 U/L (23-300) 01/06/18 19:58 Blood Type O POSITIVE 01/06/18 19:58 Antibody Screen Negative 01/06/18 19:58 BBK History Checked No verified bt 01/06/18 19:58 Discharge Exam - Head Exam Head Exam: NORMAL INSPECTION Discharge Plan - Follow Up Plan Condition: FAIR Disposition: HOME/ ROUTINE Instructions: Inguinal and Femoral (Groin) Hernias, Hernia Repair (DC) Referrals: [facility] [Outside] Kev Umana MD [Staff Provider] - Duane Hauser MD [Staff Provider] -
[2018-01-10] MEDS ORDERED: EPINEPHrine 1 mg/ml (1:1000) Inj ONE (14:41)
[2018-01-10] MEDS ORDERED: Bupivacaine HCl 0.25% PF (30 ml) Inj ONE (14:41)
[2018-01-10] MEDS ORDERED: Lidocaine 2% Inj (20ml) ONE (14:42)
[2018-01-10] MEDS ORDERED: Lactated Ringer's 1,000 ML IV ONE ×2 (15:10→15:15)
[2018-01-10] MEDS ORDERED: Midazolam 2 MG/2 ML VIAL ONE (15:11)
[2018-01-10] MEDS ORDERED: Dexamethasone 4 mg/1 ml ONE (15:31)
[2018-01-10] MEDS ORDERED: Piperacillin/Tazobact 3.375 GM in Sodium Chloride 0.9% 100 ML IVPB ONE (17:30)
[2018-01-10] MEDS ORDERED: Lactated Ringer's 500 ML IV ONE (17:38)
[2018-01-10] MEDS ORDERED: Sodium Chloride 0.9% 500 ML IV ONE ×4 (17:38→18:52)
--- NOTE | 2018-01-10 18:00 | PCM.SURG1 ---
Surgeon's Initial Post Op Note - Surgeon's Notes Surgeon: Dr. Umana Mill Representative: Praful PGY1; Malini KIRBYM Type of Anesthesia: General Endo, Local Anesthesia Administered By: Dr. Barajas; Dr. Willis Pre-Operative Diagnosis: Small Bowel Obstruction; Right Inguinal Hernia Operative Findings: see operative report. Single band adhesion with proximal Small Bowel dilatation. Right Inguinal hernia, reducible. Post-Operative Diagnosis: same Operation Performed: Exploratory Diagnostic Laparoscopy, Lysis of Adhesions. Specimen/Specimens Removed: Inflammatory band, Pelvic fluid for culture Estimated Blood Loss: EBL {In ML}: 10 Blood Products Given: N/A Drains Used: Nicho Post-Op Condition: Good Date of Surgery/Procedure: 01/10/18 Time of Surgery/Procedure: 18:01
[2018-01-10] MEDS ORDERED: HYDROmorphone 0.5 mg/0.5 ml ISec IVP PRN (18:01)
[2018-01-10] MEDS: Piperacillin/Tazobact 3.375 GM in Sodium Chloride 0.9% 100 ML IVPB SCH (21:43)
--- NOTE | 2018-01-10 23:50 | CP.PCM.PN ---
Subjective - Date & Time of Evaluation Date of Evaluation: 01/10/18 Time of Evaluation: 13:20 - Subjective Subjective: F/U SBO Awake, no A/D, no abdominal pain now. Objective - Vital Signs/Intake and Output Vital Signs (last 24 hours): Temp Pulse Resp BP Pulse Ox 98.4 F 75 20 149/74 95 01/10/18 23:40 01/10/18 23:40 01/10/18 23:40 01/10/18 23:40 01/10/18 23:40 Intake and Output: 01/10/18 01/11/18 18:59 06:59 Intake Total 2900 Output Total 355 100 Balance 2545 -100 - Medications Medications: Current Medications Benzocaine/Menthol (Cepacol Sore Throat) 1 margarita PO Q2 PRN PRN Reason: Sore Throat Heparin Sodium (Porcine) (Heparin) 5,000 units SC Q8 [facility] PRN Reason: Protocol Hydromorphone HCl (Dilaudid) 0.5 mg IVP Q3H PRN PRN Reason: Pain, severe (8-10) Dextrose/Sodium Chloride (Dextrose 5%/0.45% Ns 1000 Ml) 1,000 mls @ 125 mls/hr IV .Q8H [facility] Last Admin: 01/10/18 23:13 Dose: 125 mls/hr Piperacillin Sod/Tazobactam (Sod 3.375 gm/ Sodium Chloride) 100 mls @ 100 mls/ hr IVPB Q6 [facility] PRN Reason: Protocol Last Admin: 01/10/18 21:43 Dose: 100 mls/hr Ketorolac Tromethamine (Toradol) 15 mg IVP Q6 [facility] Stop: 01/11/18 16:01 Last Admin: 01/10/18 21:45 Dose: 15 mg Ondansetron HCl (Zofran Inj) 4 mg IVP Q6 PRN PRN Reason: nausea Pantoprazole Sodium (Protonix Inj) 40 mg IVP DAILY [facility] Last Admin: 01/10/18 08:53 Dose: 40 mg - Labs Labs: 01/10/18 05:25 01/10/18 05:25 PT 10.0 Seconds (9.8-13.1) 01/06/18 19:58 INR 0.9 (0.9-1.2) 06/14/18 19:58 APTT 30.4 Seconds (25.6-37.1) 01/06/18 19:58 - Constitutional Appears: No Acute Distress - Head Exam Head Exam: NORMAL INSPECTION - Eye Exam Eye Exam: PERRL - ENT Exam ENT Exam: Normal Exam - Neck Exam Neck Exam: Normal Inspection - Respiratory Exam Respiratory Exam: Clear to Ausculation Bilateral - Cardiovascular Exam Cardiovascular Exam: REGULAR RHYTHM - GI/Abdominal Exam GI & Abdominal Exam: Soft, Normal Bowel Sounds Additional comments: R inguinal hernia reducible - Extremities Exam Extremities Exam: Normal Inspection - Back Exam Back Exam: NORMAL INSPECTION - Neurological Exam Neurological Exam: Alert, CN II-XII Intact, Oriented x3. absent: Motor Sensory Deficit - Psychiatric Exam Psychiatric exam: Normal Affect, Normal Mood - Skin Skin Exam: Warm Assessment and Plan (1) Small bowel obstruction Status: Acute (2) Inguinal hernia Status: Chronic - Assessment and Plan (Free Text) Plan: Continue Zosyn, IV fluid, NPO, for Exploratory Lap today.
[2018-01-11] MEDS: Dextrose 5%/0.45% NS 1,000 ML IV SCH ×2 (02:30→09:05)
[2018-01-11] MEDS: Piperacillin/Tazobact 3.375 GM in Sodium Chloride 0.9% 100 ML IVPB SCH ×3 (03:57→16:58)
[2018-01-11 06:09] LABS: BASO % 0.3 % (0.0-2.0); EOS % 0.4 % (0.0-4.0); HEMOGLOBIN 13.2 g/dL (12.0-18.0); LYMPH # 0.7 K/uL (1.0-4.3); LYMPH % 11.1 % (20.0-40.0); MEAN CELL VOLUME 89.5 fl (80.0-94.0); MEAN CORPUSCULAR HEMOGLOBIN 29.7 pg (27.0-31.0); MEAN CORPUSCULAR HGB CONC 33.1 g/dL (33.0-37.0); MEAN PLATELET VOLUME 8.7 fl (7.2-11.7); MONO # 0.7 K/uL (0.0-0.8); MONO % 10.7 % (0.0-10.0); NEUT % 77.5 % (50.0-75.0); RBC 4.45 Mil/uL (4.40-5.90); RED CELL DISTRIBUTION WIDTH 14.6 % (11.5-14.5); WHITE BLOOD COUNT 6.5 K/uL (4.8-10.8)
[2018-01-11 06:19] LABS: ALB/GLOB RATIO 1.1 (1.0-2.1); ALBUMIN 2.7 g/dL (3.5-5.0); ALT/SGPT 32 U/L (21-72); AST/SGOT 19 U/L (17-59); BLOOD UREA NITROGEN 10 mg/dl (9-20); GFR AFRICAN-AMERICAN > 60; GFR NON-AFRICAN AMERICAN > 60
--- NOTE | 2018-01-11 09:16 | CP.PCM.PN ---
<Vu Braxton - Last Filed: 01/11/18 09:30> Subjective - Date & Time of Evaluation Date of Evaluation: 01/11/18 Time of Evaluation: 06:45 - Subjective Subjective: Patient seen and examined. No acute events over night. 900cc UOP. Reports passing flatus. Denies abdominal pain. 175cc's serosanguinous output from demetrius drain. Objective - Vital Signs/Intake and Output Vital Signs (last 24 hours): Temp Pulse Resp BP Pulse Ox 98.7 F 90 18 144/71 97 01/11/18 08:56 01/11/18 08:56 01/11/18 08:56 01/11/18 08:56 01/11/18 08:56 Intake and Output: 01/11/18 01/11/18 06:59 18:59 Intake Total 1375 Output Total 1000 Balance 375 - Medications Medications: Current Medications Benzocaine/Menthol (Cepacol Sore Throat) 1 margarita PO Q2 PRN PRN Reason: Sore Throat Heparin Sodium (Porcine) (Heparin) 5,000 units SC Q8 [facility] PRN Reason: Protocol Last Admin: 01/11/18 08:43 Dose: 5,000 units Hydromorphone HCl (Dilaudid) 0.5 mg IVP Q3H PRN PRN Reason: Pain, severe (8-10) Dextrose/Sodium Chloride (Dextrose 5%/0.45% Ns 1000 Ml) 1,000 mls @ 125 mls/hr IV .Q8H [facility] Last Admin: 01/11/18 09:05 Dose: 125 mls/hr Piperacillin Sod/Tazobactam (Sod 3.375 gm/ Sodium Chloride) 100 mls @ 100 mls/ hr IVPB Q6 [facility] PRN Reason: Protocol Last Admin: 01/11/18 03:57 Dose: 100 mls/hr Ketorolac Tromethamine (Toradol) 15 mg IVP Q6 [facility] Stop: 01/11/18 16:01 Last Admin: 01/11/18 09:02 Dose: 15 mg Ondansetron HCl (Zofran Inj) 4 mg IVP Q6 PRN PRN Reason: nausea Pantoprazole Sodium (Protonix Inj) 40 mg IVP DAILY [facility] Last Admin: 01/11/18 08:44 Dose: 40 mg - Labs Labs: 01/11/18 05:40 01/11/18 05:40 PT 10.0 Seconds (9.8-13.1) 01/06/18 19:58 INR 0.9 (0.9-1.2) 01/06/18 19:58 APTT 30.4 Seconds (25.6-37.1) 01/06/18 19:58 - Constitutional Appears: No Acute Distress - Head Exam Head Exam: NORMOCEPHALIC - Eye Exam Eye Exam: Normal appearance - ENT Exam ENT Exam: Mucous Membranes Moist - Respiratory Exam Respiratory Exam: NORMAL BREATHING PATTERN - Cardiovascular Exam Cardiovascular Exam: +S1, +S2 - GI/Abdominal Exam GI & Abdominal Exam: Soft, Hernia Additional comments: R inguinal hernia, reducible - Neurological Exam Neurological Exam: Alert, Awake, Oriented x3 - Psychiatric Exam Psychiatric exam: Normal Mood - Skin Skin Exam: Dry, Intact, Normal Color Assessment and Plan - Assessment and Plan (Free Text) Assessment: 62M with SBO 2/2 single band adhesion likely 2/2 prior inflammatory process ( diverticulitis) s/p exploratory laparoscopy w/ lysis of adhesion POD1 Plan: -SBO resolving, patient passing flatus -NGT LIS -Monitor Bowel function -Record NAY drain output -D/C acosta -C/w ABx -Analgesic/Anti-emetics prn -Encourage ambulation -Encourage IS use -Further recs per Dr. Dong Fisher PGY2 <Kev Umana - Last Filed: 01/11/18 19:24> Subjective - Subjective Subjective: Discussed with resident staff and agree with above assessment and plan. Exploratory laparoscopy and lysis of adhesive band 2/2 sigmoid diverticulitis causing distal SBO. Patient should have return of bowel function pretty quickly post-operatively. Dc NGT. Clears ok for dinner if continues to pass flatus and no distension, nausea, vomiting. Cont. Abx course for diverticulitis. Objective - Vital Signs/Intake and Output Vital Signs (last 24 hours): Temp Pulse Resp BP Pulse Ox 99.2 F 67 18 144/77 97 01/11/18 16:57 01/11/18 16:57 01/11/18 16:57 01/11/18 16:57 01/11/18 16:57 - Medications Medications: Current Medications Benzocaine/Menthol (Cepacol Sore Throat) 1 margarita PO Q2 PRN PRN Reason: Sore Throat Heparin Sodium (Porcine) (Heparin) 5,000 units SC Q8 [facility] PRN Reason: Protocol Last Admin: 01/11/18 16:55 Dose: 5,000 units Hydromorphone HCl (Dilaudid) 0.5 mg IVP Q3H PRN PRN Reason: Pain, severe (8-10) Piperacillin Sod/Tazobactam (Sod 3.375 gm/ Sodium Chloride) 100 mls @ 100 mls/ hr IVPB Q6 [facility] PRN Reason: Protocol Last Admin: 01/11/18 16:58 Dose: 100 mls/hr Potassium Chloride/Dextrose/Sod Cl (Potassium Chl 40 Meq In D5-1/2ns) 1,000 mls @ 75 mls/hr IV .[id number] [facility] Stop: 01/12/18 13:06 Last Admin: 01/11/18 16:55 Dose: 75 mls/hr Ondansetron HCl (Zofran Inj) 4 mg IVP Q6 PRN PRN Reason: nausea Pantoprazole Sodium (Protonix Inj) 40 mg IVP DAILY [facility] Last Admin: 01/11/18 08:44 Dose: 40 mg - Labs Labs: 01/11/18 05:40 01/11/18 05:40 PT 10.0 Seconds (9.8-13.1) 01/06/18 19:58 INR 0.9 (0.9-1.2) 01/06/18 19:58 APTT 30.4 Seconds (25.6-37.1) 01/06/18 19:58
--- NOTE | 2018-01-11 10:30 | RAD ---
HISTORY: NGT placement. Eval Bowel status COMPARISON: 01/07/2018 FINDINGS: LUNGS: No active pulmonary disease. PLEURA: No significant pleural effusion identified, no pneumothorax apparent. CARDIOVASCULAR: Nasogastric tube extends to left upper quadrant of abdomen. OSSEOUS STRUCTURES: No significant abnormalities. VISUALIZED UPPER ABDOMEN: Normal. OTHER FINDINGS: None. IMPRESSION: No active disease.
[2018-01-11] MEDS ORDERED: Potassium Chl 40 mEq in D5-1/2 1,000 ML IV SCH (13:15)
--- NOTE | 2018-01-11 13:46 | CP.PCM.PN ---
Subjective - Date & Time of Evaluation Date of Evaluation: 01/11/18 Time of Evaluation: 13:46 - Subjective Subjective: no overnight events Objective - Vital Signs/Intake and Output Vital Signs (last 24 hours): Temp Pulse Resp BP Pulse Ox 98.7 F 90 18 144/71 97 01/11/18 08:56 01/11/18 08:56 01/11/18 08:56 01/11/18 08:56 01/11/18 08:56 Intake and Output: 01/11/18 01/11/18 06:59 18:59 Intake Total 1375 Output Total 1000 Balance 375 - Medications Medications: Current Medications Benzocaine/Menthol (Cepacol Sore Throat) 1 margarita PO Q2 PRN PRN Reason: Sore Throat Heparin Sodium (Porcine) (Heparin) 5,000 units SC Q8 [facility] PRN Reason: Protocol Last Admin: 01/11/18 08:43 Dose: 5,000 units Hydromorphone HCl (Dilaudid) 0.5 mg IVP Q3H PRN PRN Reason: Pain, severe (8-10) Piperacillin Sod/Tazobactam (Sod 3.375 gm/ Sodium Chloride) 100 mls @ 100 mls/ hr IVPB Q6 [facility] PRN Reason: Protocol Last Admin: 01/11/18 03:57 Dose: 100 mls/hr Potassium Chloride/Dextrose/Sod Cl (Potassium Chl 40 Meq In D5-1/2ns) 1,000 mls @ 125 mls/hr IV .Q8H [facility] Stop: 01/12/18 13:06 Ketorolac Tromethamine (Toradol) 15 mg IVP Q6 [facility] Stop: 01/11/18 16:01 Last Admin: 01/11/18 09:02 Dose: 15 mg Ondansetron HCl (Zofran Inj) 4 mg IVP Q6 PRN PRN Reason: nausea Pantoprazole Sodium (Protonix Inj) 40 mg IVP DAILY [facility] Last Admin: 01/11/18 08:44 Dose: 40 mg - Labs Labs: 01/11/18 05:40 01/11/18 05:40 PT 10.0 Seconds (9.8-13.1) 01/06/18 19:58 INR 0.9 (0.9-1.2) 01/06/18 19:58 APTT 30.4 Seconds (25.6-37.1) 01/06/18 19:58 - Head Exam Head Exam: NORMOCEPHALIC - Neck Exam Neck Exam: Normal Inspection - Respiratory Exam Respiratory Exam: Clear to Ausculation Bilateral, NORMAL BREATHING PATTERN - Cardiovascular Exam Cardiovascular Exam: REGULAR RHYTHM - GI/Abdominal Exam GI & Abdominal Exam: Normal Bowel Sounds Assessment and Plan - Assessment and Plan (Free Text) Assessment: 62 yo male with sbo doing well advance diet per surgery
--- NOTE | 2018-01-11 15:01 | CP.PCM.PN ---
Subjective - Date & Time of Evaluation Date of Evaluation: 01/11/18 Time of Evaluation: 13:00 - Subjective Subjective: S/P Ex-Lap yesterday, no c/o of pain, no n/v/d. Objective - Vital Signs/Intake and Output Vital Signs (last 24 hours): Temp Pulse Resp BP Pulse Ox 98.7 F 90 18 144/71 97 01/11/18 08:56 01/11/18 08:56 01/11/18 08:56 01/11/18 08:56 01/11/18 08:56 Intake and Output: 01/11/18 01/11/18 06:59 18:59 Intake Total 1375 Output Total 1000 Balance 375 - Medications Medications: Current Medications Benzocaine/Menthol (Cepacol Sore Throat) 1 margarita PO Q2 PRN PRN Reason: Sore Throat Heparin Sodium (Porcine) (Heparin) 5,000 units SC Q8 [facility] PRN Reason: Protocol Last Admin: 01/11/18 08:43 Dose: 5,000 units Hydromorphone HCl (Dilaudid) 0.5 mg IVP Q3H PRN PRN Reason: Pain, severe (8-10) Piperacillin Sod/Tazobactam (Sod 3.375 gm/ Sodium Chloride) 100 mls @ 100 mls/ hr IVPB Q6 [facility] PRN Reason: Protocol Last Admin: 01/11/18 03:57 Dose: 100 mls/hr Potassium Chloride/Dextrose/Sod Cl (Potassium Chl 40 Meq In D5-1/2ns) 1,000 mls @ 125 mls/hr IV .Q8H [facility] Stop: 01/12/18 13:06 Ketorolac Tromethamine (Toradol) 15 mg IVP Q6 [facility] Stop: 01/11/18 16:01 Last Admin: 01/11/18 09:02 Dose: 15 mg Ondansetron HCl (Zofran Inj) 4 mg IVP Q6 PRN PRN Reason: nausea Pantoprazole Sodium (Protonix Inj) 40 mg IVP DAILY [facility] Last Admin: 01/11/18 08:44 Dose: 40 mg - Labs Labs: 01/11/18 05:40 01/11/18 05:40 PT 10.0 Seconds (9.8-13.1) 01/06/18 19:58 INR 0.9 (0.9-1.2) 01/06/18 19:58 APTT 30.4 Seconds (25.6-37.1) 01/06/18 19:58 - Constitutional Appears: No Acute Distress - Head Exam Head Exam: NORMAL INSPECTION - Eye Exam Eye Exam: PERRL - ENT Exam ENT Exam: Normal Exam - Neck Exam Neck Exam: Normal Inspection - Respiratory Exam Respiratory Exam: Clear to Ausculation Bilateral - Cardiovascular Exam Cardiovascular Exam: REGULAR RHYTHM - GI/Abdominal Exam GI & Abdominal Exam: Soft, Normal Bowel Sounds Additional comments: 3 abdominal puncture sites with dermabound, dressing intact. - Extremities Exam Extremities Exam: Normal Inspection - Back Exam Back Exam: NORMAL INSPECTION - Neurological Exam Neurological Exam: Alert, CN II-XII Intact, Oriented x3. absent: Motor Sensory Deficit - Psychiatric Exam Psychiatric exam: Normal Affect, Normal Mood - Skin Skin Exam: Warm Assessment and Plan (1) S/P exploratory laparotomy Status: Acute (2) Small bowel obstruction Status: Resolved (3) Inguinal hernia Status: Chronic - Assessment and Plan (Free Text) Plan: Continue Zosyn, Dilaudid and rest of Tx.
[2018-01-11] MEDS: Potassium Chl 40 mEq in D5-1/2 1,000 ML IV SCH (16:55)
--- NOTE | 2018-01-11 19:30 | PCM.OP ---
Operative Report - Operative Report Date of Surgery/Procedure: 01/10/18 Time of Surgery/Procedure: 15:30 Surgeon: Kev Umana MD Specialty Sales Consultant: Ilia Basilio DO (PGY1) Anesthesia/Sedation: General; 1%Lidocaine + 0.25 Marcaine local Pre-Operative Diagnosis: Small Bowel Obstruction. Right inguinal hernia Post-Operative Diagnosis: Adhesive Small bowel obstruction. Sigmoid Diverticulitis. Non-obstructing right indirect inguinal hernia Indication for Surgery: This is a pleasant 62-year-old male denies any prior surgical history presented with acute onset abdominal pain distention nausea and vomiting that started on evening prior to arrival to the emergency department. CT abdomen pelvis was obtained which showed small bowel obstruction with possible transition point in the right lower quadrant and a right inguinal hernia was also noted with some fluid and possible bowel wall abutting the inguinal hernia. On exam the hernia was reducible. The patient stated that he first noted this hernia the second day of experiencing this pain and this was thought to be the cause of his small bowel obstruction given the temporal relation btween the two and as the patient denied prior surgery prior surgical history. For the details of his HPI can be found in his clinical chart. I discussed with the patient the recommendation of undergoing a expiratory laparoscopy with the intention to perform a laparoscopic robotic assisted right inguinal hernia repair with mesh if no other pathology pathologic findings were found. We received we discussed the risks and benefits of the procedure as detailed in the patient's clinical chart but mainly risk of bleeding,infection, bowel injury, need for open surgery and regarding the hernia, bladder or vascular injury, urinary retention, hernia recurrence, mesh infection and chronic groin pain. He understood these risks and wished to proceed and informed consent was signed prior to the operation. Operative Findings: Inflamed sigmoid colon with adhesions to lateral abd wall; Adhesive band orinating from what appeared to be sigmoid epiploic appendage to mesentery and anterior abdominal wall causing adhesive distal small bowel obstruction. Normal appearing terminal ileum, cecum and appendix. Procedure/Operation Description: PROCEDURE PERFORMED: Exploratroy Laparoscopy, robotic assisted, and Lysis of adhesions and drain placement. DETAILS OF OPERATION: Patient placed supine and both arms out on arm boards and all pressure points were padded. Rm catheter placed using sterile technique. After endotracheal intubation and induction, NGT was inserted for gastric decompression, abdominal hair removal done with feliz, and upper body warmer placed to maintain body temperature. Sequential compression stockings placed for DVT prophylaxis. The patient received 1 gram of ancef 20 minutes prior to incision. The abdomen was prepped and draped in standard sterile fashion. A time-out was performed prior to incision. Laparoscopic access: infraaumbilical midline circumlinear incision was made and the umbilical raphe was identified and the fascia was divided between clamps at its base entering the abdomen in an open fashion. An 8mm robotic trocar was inserted in the abdomen and the abdomen was insufflated to 15 mmHg pressure with CO2. A 5mm 0 degree laparoscope was then inserted and the abdomen was generally inspected. There were no signs of injury from initial entry. There was dilated loops of small bowel in the pelvis and the right inguinal hernia was visualized. I proceeded to place my working ports as I would for robotic inguinal hernia repair. Two 8- mm ports were placed after the injection of local anesthetic under direct vision , one in the left upper mid abdomen and another directly opposite on the right abdomen, giving triangulation to the pelvis. The robot was then safely docked to the patient using 3 arms. Serosanguinos fluid was noted in the pelvis and in the gutters bilaterally. Using Atraumatic bowel graspers, I began to explore the dilated loops of small bowel and quickly it became obvious that there were adhesions to the abdominal wall causing this bowel obstruction and not his right inguinal hernia. No bowel was found in the inguinal hernia. In addition the sigmoid colon appeared inflamed, without evidence of perforation or abscess , with adhesions to the left side wall. Because of this I decided not to proceed with inguinal hernia repair and the use of mesh and simply address the adhesive band causing the obstruction. The robotic instruments were withdrawn and we switched to laparoscopy. I placed an addtional 5mm port in the suprapubic region under direct vision. An adhesive band was noted coming from anterior abdominal wall, lateral umbilical fold and diving into the small bowel mesentery. There were two loops of bowel going through this area created and the bowel appeared hemorrhagic but not ischemic. The adhesive band was taken down using ligasure bipolar energy. Immediately the two loops were released. I started to run the bowel from the ileocecal junction to further assess. Cecum and appendix appeared completely normal, the distal ileum was also notmal and decompressed. As I worked the bowel towards the site of adhesion, there appeared to a band originating from the epiploic fat of the inflamed sigmoid colon adherent to the small bowel mesentery. This was taken down close to the sigmoid. After releasing it it turned out that this was the same band that was removed earlier and was causing multiple points for small bowel to twist around. The adhesive band was removed and sent off to pathology. Photodocumentation was done and copies placed in patients chart. Next the abdomen was suctioned of serosanguinous fluid. Bowel was reinspected and viable and without ischemic changes, no resection was necesary. a 19 Fr NAY drain was placed along the left side and into pelvis adjacent to sigmoid colon, and brought out through the left mid abdominal port site, and sutured in placed with 2-0 nylon suture. The remaining ports were removed under direct vision and the abdomen desufflated. The umbilical port site was closed using an interupted 0-vcryl suture. Remaining port site incisions closed with 4-0 monocryl and dermabond applied to skin. The patient was etubated in the OR and taken to recovery in stable condition. I was present for the entirety of the operation. All sponge, needle, and instrument counts were correct at the end of the case. Estimated Blood Loss: 10 Drains: 19 Fr NAY x1 - left mid abd Complications: none Specimen: Adhesive fibrous tissue/epiploic fat Discharge & Condition: The patient was etubated in the OR and taken to recovery in stable condition.
[2018-01-12] MEDS: Potassium Chl 40 mEq in D5-1/2 1,000 ML IV SCH ×2 (02:05→10:01)
[2018-01-12] MEDS: Piperacillin/Tazobact 3.375 GM in Sodium Chloride 0.9% 100 ML IVPB SCH (09:58)
[2018-01-12] MEDS ORDERED: Magnesium Citrate Oral SOL (300 ml) PO ONE (10:49)
--- NOTE | 2018-01-12 11:37 | CP.PCM.PN ---
<PrafulLakhwindery - Last Filed: 01/12/18 15:21> Subjective - Date & Time of Evaluation Date of Evaluation: 01/12/18 Time of Evaluation: 07:35 - Subjective Subjective: Surgery Progress note. Dr. Umana Pt seen and examined at bedside. No acute events overnight. No N/V/D. Does report flatus, no BMs. Tolerating CLD. Ambulating well. Nicho in place with serros drainage. No new complaints. Objective - Vital Signs/Intake and Output Vital Signs (last 24 hours): Temp Pulse Resp BP Pulse Ox 98.1 F 55 L 20 136/74 97 01/12/18 08:32 01/12/18 08:32 01/12/18 08:32 01/12/18 08:32 01/12/18 08:32 - Medications Medications: Current Medications Benzocaine/Menthol (Cepacol Sore Throat) 1 margarita PO Q2 PRN PRN Reason: Sore Throat Ciprofloxacin (Cipro) 500 mg PO Q12 [facility] PRN Reason: Protocol Stop: 01/18/18 21:01 Docusate Sodium (Colace) 100 mg PO DAILY [facility] Heparin Sodium (Porcine) (Heparin) 5,000 units SC Q8 [facility] PRN Reason: Protocol Last Admin: 01/12/18 09:53 Dose: 5,000 units Piperacillin Sod/Tazobactam (Sod 3.375 gm/ Sodium Chloride) 100 mls @ 100 mls/ hr IVPB Q6 [facility] PRN Reason: Protocol Last Admin: 01/12/18 09:58 Dose: 100 mls/hr Potassium Chloride/Dextrose/Sod Cl (Potassium Chl 40 Meq In D5-1/2ns) 1,000 mls @ 75 mls/hr IV .[id number] [facility] Stop: 01/12/18 13:06 Last Admin: 01/12/18 10:01 Dose: 75 mls/hr Metronidazole (Flagyl) 500 mg PO Q12 [facility] PRN Reason: Protocol Stop: 01/18/18 21:01 Ondansetron HCl (Zofran Inj) 4 mg IVP Q6 PRN PRN Reason: nausea Pantoprazole Sodium (Protonix Inj) 40 mg IVP DAILY [facility] Last Admin: 01/12/18 09:56 Dose: 40 mg - Labs Labs: 01/11/18 05:40 01/11/18 05:40 PT 10.0 Seconds (9.8-13.1) 01/06/18 19:58 INR 0.9 (0.9-1.2) 01/06/18 19:58 APTT 30.4 Seconds (25.6-37.1) 01/06/18 19:58 - Constitutional Appears: Well, Non-toxic, No Acute Distress - Head Exam Head Exam: ATRAUMATIC, NORMAL INSPECTION, NORMOCEPHALIC - Eye Exam Eye Exam: EOMI, Normal appearance. absent: Scleral icterus - ENT Exam ENT Exam: Mucous Membranes Moist - GI/Abdominal Exam GI & Abdominal Exam: Soft. absent: Distended, Firm, Guarding, Rigid, Rebound Additional comments: mild daisha-incisional tenderness. Nicho in place with 100cc serrous output over the past 12 hours. Reducible R inguinal hernia - Extremities Exam Extremities Exam: Normal Inspection. absent: Calf Tenderness - Neurological Exam Neurological Exam: Alert, Awake, Oriented x3 - Skin Skin Exam: Dry, Intact, Normal Color, Warm Assessment and Plan - Assessment and Plan (Free Text) Assessment: 62yo M with SBO due single band adhesion likely 2/2 diverticulitis s/p exploratory laparoscopy w/ lysis of adhesion POD2. Plan: - Start Low Fiber diet - Start bowel regimen today. Colace daily; Mag Citrate x1 - Monitor Bowel function - Strict I&Os. Record NAY drain output - Continue Antibiotics: transition to PO - Analgesic/Anti-emetics prn - Encourage ambulation, OOBTC, and IS use Further recs as per Dr. Dong Basilio PGY1 Surgery pager: [phone] <Kev Umana - Last Filed: 01/14/18 21:17> Objective - Vital Signs/Intake and Output Vital Signs (last 24 hours): Temp Pulse Resp BP Pulse Ox 97.8 F 74 18 137/71 98 01/13/18 15:35 01/13/18 15:35 01/13/18 15:35 01/13/18 15:35 01/13/18 15:35 - Labs Labs: 01/13/18 05:25 01/13/18 05:25 PT 10.0 Seconds (9.8-13.1) 01/06/18 19:58 INR 0.9 (0.9-1.2) 01/06/18 19:58 APTT 30.4 Seconds (25.6-37.1) 01/06/18 19:58 Assessment and Plan - Assessment and Plan (Free Text) Plan: Patient was seen and examined at bedside with the resident staff agree with the above assessment and plan
--- NOTE | 2018-01-12 15:45 | CP.PCM.PN ---
Subjective - Date & Time of Evaluation Date of Evaluation: 01/12/18 Time of Evaluation: 11:30 - Subjective Subjective: F/U S/P Ex-Lap. no abdominal pain no N/V , on clear fluids Objective - Vital Signs/Intake and Output Vital Signs (last 24 hours): Temp Pulse Resp BP Pulse Ox 98.1 F 55 L 20 136/74 97 01/12/18 08:32 01/12/18 08:32 01/12/18 08:32 01/12/18 08:32 01/12/18 08:32 - Medications Medications: Current Medications Benzocaine/Menthol (Cepacol Sore Throat) 1 margarita PO Q2 PRN PRN Reason: Sore Throat Ciprofloxacin (Cipro) 500 mg PO Q12 [facility] PRN Reason: Protocol Stop: 01/18/18 21:01 Last Admin: 01/12/18 13:04 Dose: 500 mg Docusate Sodium (Colace) 100 mg PO DAILY [facility] Last Admin: 01/12/18 13:02 Dose: 100 mg Heparin Sodium (Porcine) (Heparin) 5,000 units SC Q8 [facility] PRN Reason: Protocol Last Admin: 01/12/18 09:53 Dose: 5,000 units Metronidazole (Flagyl) 500 mg PO Q12 [facility] PRN Reason: Protocol Stop: 01/18/18 21:01 Last Admin: 01/12/18 13:04 Dose: 500 mg Ondansetron HCl (Zofran Inj) 4 mg IVP Q6 PRN PRN Reason: nausea Pantoprazole Sodium (Protonix Inj) 40 mg IVP DAILY [facility] Last Admin: 01/12/18 09:56 Dose: 40 mg - Labs Labs: 01/11/18 05:40 01/11/18 05:40 PT 10.0 Seconds (9.8-13.1) 01/06/18 19:58 INR 0.9 (0.9-1.2) 01/06/18 19:58 APTT 30.4 Seconds (25.6-37.1) 01/06/18 19:58 - Constitutional Appears: No Acute Distress - Head Exam Head Exam: NORMAL INSPECTION - Eye Exam Eye Exam: PERRL - ENT Exam ENT Exam: Normal Exam - Neck Exam Neck Exam: Normal Inspection - Respiratory Exam Respiratory Exam: Clear to Ausculation Bilateral - Cardiovascular Exam Cardiovascular Exam: REGULAR RHYTHM - GI/Abdominal Exam GI & Abdominal Exam: Soft, Hernia (R inguinal hernia reducible), Normal Bowel Sounds Additional comments: surgical incisions healing well , minimal tenderness surgical incisions , NAY draining yellowish drainage - Extremities Exam Extremities Exam: Normal Inspection - Back Exam Back Exam: NORMAL INSPECTION - Neurological Exam Neurological Exam: Alert, CN II-XII Intact, Oriented x3. absent: Motor Sensory Deficit - Psychiatric Exam Psychiatric exam: Normal Affect, Normal Mood - Skin Skin Exam: Warm Assessment and Plan (1) S/P exploratory laparotomy Assessment & Plan: robotic with lysis of adhesions closed to diverticulitis sigmoid area , continue Cipro , Flagyl , increase diet today Status: Acute (2) Small bowel obstruction Status: Resolved (3) Diverticulitis Status: Acute (4) Inguinal hernia Assessment & Plan: Surgery defered as elective as out patient Status: Chronic
[2018-01-13 06:40] LABS: HEMOGLOBIN 13.3 g/dL (12.0-18.0); MEAN CELL VOLUME 88.5 fl (80.0-94.0); MEAN CORPUSCULAR HEMOGLOBIN 29.9 pg (27.0-31.0); MEAN CORPUSCULAR HGB CONC 33.8 g/dL (33.0-37.0); RBC 4.44 Mil/uL (4.40-5.90); RED CELL DISTRIBUTION WIDTH 14.4 % (11.5-14.5)
[2018-01-13 07:01] LABS: BLOOD UREA NITROGEN 6 mg/dl (9-20); CALCIUM 8.6 mg/dL (8.4-10.2); GFR AFRICAN-AMERICAN > 60; GFR NON-AFRICAN AMERICAN > 60
--- NOTE | 2018-01-13 10:09 | CP.PCM.PN ---
<Stewart Nayak - Last Filed: 01/13/18 10:47> Subjective - Date & Time of Evaluation Date of Evaluation: 01/13/18 Time of Evaluation: 07:00 - Subjective Subjective: Surgery Progress Note - Dr. Umana Patient seen and examined this AM. No acute events overnight. Drain output 50cc serous drainage. Tolerating diet. Denies N/V/D. No F/C. Objective - Vital Signs/Intake and Output Vital Signs (last 24 hours): Temp Pulse Resp BP Pulse Ox 98.2 F 64 20 167/87 H 96 01/13/18 08:47 01/13/18 08:47 01/13/18 08:47 01/13/18 08:47 01/13/18 08:47 - Medications Medications: Current Medications Benzocaine/Menthol (Cepacol Sore Throat) 1 margarita PO Q2 PRN PRN Reason: Sore Throat Ciprofloxacin (Cipro) 500 mg PO Q12 [facility] PRN Reason: Protocol Stop: 01/18/18 21:01 Last Admin: 01/13/18 09:16 Dose: 500 mg Docusate Sodium (Colace) 100 mg PO DAILY [facility] Last Admin: 01/13/18 09:17 Dose: Not Given Heparin Sodium (Porcine) (Heparin) 5,000 units SC Q8 [facility] PRN Reason: Protocol Last Admin: 01/13/18 09:17 Dose: 5,000 units Metronidazole (Flagyl) 500 mg PO Q12 [facility] PRN Reason: Protocol Stop: 01/18/18 21:01 Last Admin: 01/13/18 09:16 Dose: 500 mg Ondansetron HCl (Zofran Inj) 4 mg IVP Q6 PRN PRN Reason: nausea Pantoprazole Sodium (Protonix Inj) 40 mg IVP DAILY [facility] Last Admin: 01/13/18 09:17 Dose: 40 mg - Labs Labs: 01/13/18 05:25 01/13/18 05:25 PT 10.0 Seconds (9.8-13.1) 01/06/18 19:58 INR 0.9 (0.9-1.2) 01/06/18 19:58 APTT 30.4 Seconds (25.6-37.1) 01/06/18 19:58 - Constitutional Appears: Well, Non-toxic, No Acute Distress - Head Exam Head Exam: ATRAUMATIC, NORMAL INSPECTION, NORMOCEPHALIC - Eye Exam Eye Exam: EOMI, Normal appearance Pupil Exam: PERRL - ENT Exam ENT Exam: Mucous Membranes Moist - Neck Exam Neck Exam: Full ROM - Respiratory Exam Respiratory Exam: NORMAL BREATHING PATTERN. absent: Respiratory Distress - Cardiovascular Exam Cardiovascular Exam: REGULAR RHYTHM - GI/Abdominal Exam Additional comments: mild daisha-incisional tenderness. Nicho in place with 50cc serous output Reducible R inguinal hernia - Extremities Exam Extremities Exam: Full ROM - Neurological Exam Neurological Exam: Alert, Awake, Oriented x3 - Psychiatric Exam Psychiatric exam: Normal Mood - Skin Skin Exam: Normal Color, Warm Assessment and Plan - Assessment and Plan (Free Text) Assessment: 62yo M with SBO due single band adhesion likely 2/2 diverticulitis s/p exploratory laparoscopy w/ lysis of adhesion POD3. Plan: - Continue Low Fiber diet - Continue bowel regimen - Colace qd - Monitor Bowel function - Continue PO abx - NAY drain removed w/o incident; dressing applied, to be changed prn - Analgesic/Anti-emetics prn - Encourage ambulation, OOBTC, and IS use - Stable for dc home per surgery - Follow up with Dr. Umana in 10-14 days - Dc home on Cipro/Flagyl Further recs as per Dr. Umana Surgery pager: [phone] <Kev Umana - Last Filed: 01/14/18 21:22> Objective - Vital Signs/Intake and Output Vital Signs (last 24 hours): Temp Pulse Resp BP Pulse Ox 97.8 F 74 18 137/71 98 01/13/18 15:35 01/13/18 15:35 01/13/18 15:35 01/13/18 15:35 01/13/18 15:35 - Labs Labs: 01/13/18 05:25 01/13/18 05:25 PT 10.0 Seconds (9.8-13.1) 01/06/18 19:58 INR 0.9 (0.9-1.2) 01/06/18 19:58 APTT 30.4 Seconds (25.6-37.1) 01/06/18 19:58 Assessment and Plan - Assessment and Plan (Free Text) Plan: Patient was seen and examined at bedside with the resident staff agree with the above assessment and plan
--- NOTE | 2018-01-13 13:17 | CP.PCM.DIS ---
Provider - Provider Date of Admission: 01/06/18 23:29 Attending physician: Duane Hauser MD Diagnosis - Discharge Diagnosis (1) S/P exploratory laparotomy Status: Acute (2) Small bowel obstruction Status: Resolved (3) Inguinal hernia Status: Chronic Hospital Course - Lab Results Lab Results: Micro Results 01/10/18 10:17 Abdominal Fluid Gram Stain - Final 01/10/18 10:17 Abdominal Fluid Body Fluid Culture - Preliminary NO GROWTH AFTER 2 DAYS Most Recent Lab Values WBC 6.0 K/uL (4.8-10.8) 01/13/18 05:25 RBC 4.44 Mil/uL (4.40-5.90) 01/13/18 05:25 Hgb 13.3 g/dL (12.0-18.0) 01/13/18 05:25 Hct 39.3 % (35.0-51.0) 01/13/18 05:25 MCV 88.5 fl (80.0-94.0) 01/13/18 05:25 MCH 29.9 pg (27.0-31.0) 01/13/18 05:25 MCHC 33.8 g/dL (33.0-37.0) 01/13/18 05:25 RDW 14.4 % (11.5-14.5) 01/13/18 05:25 Plt Count 233 K/uL (130-400) 01/13/18 05:25 MPV 8.7 fl (7.2-11.7) 01/11/18 05:40 Neut % (Auto) 77.5 % (50.0-75.0) H 01/11/18 05:40 Lymph % (Auto) 11.1 % (20.0-40.0) L 01/11/18 05:40 Christian % (Auto) 10.7 % (0.0-10.0) H 01/11/18 05:40 Eos % (Auto) 0.4 % (0.0-4.0) 01/11/18 05:40 Baso % (Auto) 0.3 % (0.0-2.0) 01/11/18 05:40 Neut # (Auto) 5.0 K/uL (1.8-7.0) 01/11/18 05:40 Lymph # (Auto) 0.7 K/uL (1.0-4.3) L 01/11/18 05:40 Christian # (Auto) 0.7 K/uL (0.0-0.8) 01/11/18 05:40 Eos # (Auto) 0.0 K/uL (0.0-0.7) 01/11/18 05:40 Baso # (Auto) 0.0 K/uL (0.0-0.2) 01/11/18 05:40 PT 10.0 Seconds (9.8-13.1) 01/06/18 19:58 INR 0.9 (0.9-1.2) 01/06/18 19:58 APTT 30.4 Seconds (25.6-37.1) 01/06/18 19:58 Sodium 141 mmol/l (132-148) 01/13/18 05:25 Potassium 5.0 MMOL/L (3.6-5.0) 01/13/18 05:25 Chloride 105 mmol/L (98-107) 01/13/18 05:25 Carbon Dioxide 29 mmol/L (22-30) 01/13/18 05:25 Anion Gap 12 (10-20) 01/13/18 05:25 BUN 6 mg/dl (9-20) L 01/13/18 05:25 Creatinine 0.8 mg/dl (0.8-1.5) 01/13/18 05:25 Est GFR ( Amer) > 60 01/13/18 05:25 Est GFR (Non-Af Amer) > 60 01/13/18 05:25 Random Glucose 99 mg/dL (75-110) 01/13/18 05:25 Lactic Acid 0.9 MMOL/L (0.7-2.1) 01/06/18 19:58 Calcium 8.6 mg/dL (8.4-10.2) 01/13/18 05:25 Phosphorus 3.2 mg/dl (2.5-4.5) 01/06/18 19:58 Magnesium 2.1 MG/DL (1.6-2.3) 01/06/18 19:58 Total Bilirubin 1.9 mg/dl (0.2-1.3) H 01/11/18 05:40 AST 19 U/L (17-59) 01/11/18 05:40 ALT 32 U/L (21-72) 01/11/18 05:40 Alkaline Phosphatase 35 U/L (38-126) L 01/11/18 05:40 Lactate Dehydrogenase 427 U/L (313-618) 01/06/18 19:58 Total Protein 5.2 G/DL (6.3-8.2) L 01/11/18 05:40 Albumin 2.7 g/dL (3.5-5.0) L 01/11/18 05:40 Globulin 2.4 gm/dL (2.2-3.9) 01/11/18 05:40 Albumin/Globulin Ratio 1.1 (1.0-2.1) 01/11/18 05:40 Lipase 35 U/L (23-300) 01/06/18 19:58 Blood Type O POSITIVE 01/06/18 19:58 Antibody Screen Negative 01/06/18 19:58 BBK History Checked No verified bt 01/06/18 19:58 Discharge Exam - Head Exam Head Exam: NORMAL INSPECTION Discharge Plan - Follow Up Plan Condition: FAIR Disposition: HOME/ ROUTINE Instructions: Hernia Repair (DC), Exploratory Laparotomy (DC), Lysis of Adhesions (DC) Additional Instructions: follow up with primary MD and dr romero 1 week Referrals: Chinmay West MD, PhD [Staff Provider] - Kev Romero MD [Staff Provider] - Duane Hauser MD [Staff Provider] -
[2018-01-13 16:46] VITALS: BP 137/71; PULSE 74; RESP 18; TEMP 97.8; O2SAT 98
--- NOTE | 2018-01-14 19:43 | CP.PCM.PN ---
Subjective - Date & Time of Evaluation Date of Evaluation: 01/13/18 Time of Evaluation: 09:20 - Subjective Subjective: tolerating diet Objective - Vital Signs/Intake and Output Vital Signs (last 24 hours): Temp Pulse Resp BP Pulse Ox 97.8 F 74 18 137/71 98 01/13/18 15:35 01/13/18 15:35 01/13/18 15:35 01/13/18 15:35 01/13/18 15:35 - Labs Labs: 01/13/18 05:25 01/13/18 05:25 PT 10.0 Seconds (9.8-13.1) 01/06/18 19:58 INR 0.9 (0.9-1.2) 01/06/18 19:58 APTT 30.4 Seconds (25.6-37.1) 01/06/18 19:58 - Head Exam Head Exam: NORMOCEPHALIC - Neck Exam Neck Exam: Normal Inspection - Respiratory Exam Respiratory Exam: NORMAL BREATHING PATTERN - GI/Abdominal Exam GI & Abdominal Exam: Soft, Normal Bowel Sounds Assessment and Plan - Assessment and Plan (Free Text) Assessment: 62 yo male with sbo sbo resolved dc planning endoscopic work up as outpatient
== END 2018-01-13 16:45 | disposition home or self-care (01) | DRG 336 ==
LOC: H.ER 18:11 → H.ERHOLD 23:29 → H.MEDSURG1 01-07 00:44
PROVIDERS: ADMIT Internal Medicine Pulmonary Disease; ATTEND Internal Medicine Pulmonary Disease
PROC: 0DN84ZZ Release Small Intestine, Percutaneous Endoscopic Approach (ICD-10-PCS; principal; 2018-01-10 15:00)
DX: K56.50 Intestinal adhesions [bands], unspecified as to partial versus complete obstruction (principal); K57.32 Diverticulitis of large intestine without perforation or abscess without bleeding; K40.90 Unilateral inguinal hernia, without obstruction or gangrene, not specified as recurrent